=== PATIENT | female | born 1990 | race Caucasian/White ===

== ENCOUNTER → 2016-07-26 | Outpatient (CLI) | payer OTHER ==
[2016-07-26 14:54] LABS: URINE APPEARANCE CLEAR (CLEAR); URINE BILIRUBIN NEG (NEG); URINE COLOR YELLOW; URINE NITRITE NEG (NEG); URINE PH 8.5 (4.5-7.5); URINE SPECIFIC GRAVITY 1.011 (1.000-1.030); UROBILINOGEN NEG (NEG)
[2016-07-26 15:11] LABS: MANUAL MICROSCOPIC REQUIRED? NO; REVIEW REQ? NO
== END | disposition home or self-care (01) ==
LOC: C.LABSPEC 13:44
PROVIDERS: ATTEND Obstetrics & Gynecology
DX: O99.330 Smoking (tobacco) complicating pregnancy, unspecified trimester (principal)

== ENCOUNTER → 2016-08-17 | Outpatient (CLI) | payer OTHER ==
[2016-08-17 10:42] LABS: BASO % 0.3 %; BASO ABS # 0.03 K/uL (0-0.2); COMPLETE YES; EOS % 1.5 %; HEMATOCRIT 38.7 % (37-47); IG% 0.3 %; LYMPH % 20.4 %; LYMPH ABS # 1.94 K/uL (1.2-3.4); MEAN CELL VOLUME 90.2 fL (80-100); MEAN CORPUSCULAR HEMOGLOBIN 32.4 pg (25-34); MEAN CORPUSCULAR HGB CONC 35.9 g/dl (32-36); MEAN PLATELET VOLUME 9.2 fL (7.4-10.4); MONO % 7.4 %; NEUT % 70.1 %; PLATELET COUNT 243 K/uL (130-400); RED BLOOD COUNT 4.29 M/uL (4.2-5.4); WHITE BLOOD COUNT 9.49 K/uL (4.8-10.8)
== END | disposition home or self-care (01) ==
LOC: C.LAB1850 10:04
PROVIDERS: ATTEND Obstetrics & Gynecology
DX: Z34.03 Encounter for supervision of normal first pregnancy, third trimester (principal)

== ENCOUNTER → 2016-08-17 | Outpatient (CLI) | payer OTHER ==
[~2016-08-17] MED LIST: PRENTAB26 PO
== END | disposition home or self-care (01) ==
LOC: C.PAPS 15:23
PROVIDERS: ATTEND Obstetrics & Gynecology
DX: Z34.01 Encounter for supervision of normal first pregnancy, first trimester (principal)

== ENCOUNTER → 2016-08-17 | Outpatient (CLI) | payer OTHER ==
[2016-08-21 14:52] LABS: CHLAMYDIA TRACH RNA*** NOT DETECTED (NOT DETECTED); GC (NEIS GONORRHOEAE)RNA** NOT DETECTED (NOT DETECTED)
== END | disposition home or self-care (01) ==
LOC: C.LABSPEC 13:55
PROVIDERS: ATTEND Obstetrics & Gynecology
DX: Z34.03 Encounter for supervision of normal first pregnancy, third trimester (principal)

== ENCOUNTER → 2016-12-07 | Outpatient (CLI) | payer OTHER ==
[2016-12-07 16:21] LABS: URINE APPEARANCE TURBID (CLEAR); URINE BILIRUBIN NEG (NEG); URINE COLOR DK YELLOW; URINE EPITHELIAL CELL AUTO >30 /lpf (0-5); URINE NITRITE NEG (NEG); URINE SPECIFIC GRAVITY 1.026 (1.000-1.030); UROBILINOGEN NEG (NEG)
[2016-12-07 16:28] LABS: MANUAL MICROSCOPIC REQUIRED? NO; REVIEW REQ? YES
== END | disposition home or self-care (01) ==
LOC: C.LABSPEC 15:58
PROVIDERS: ATTEND Obstetrics & Gynecology
DX: Z34.02 Encounter for supervision of normal first pregnancy, second trimester (principal)

== ENCOUNTER → 2017-01-02 | Outpatient (CLI) | payer OTHER ==
[2017-01-02 16:27] LABS: HEMATOCRIT 39.1 % (37-47)
[2017-01-02 18:11] LABS: GTGD 50 Grams
== END | disposition home or self-care (01) ==
LOC: C.LAB1850 13:32
PROVIDERS: ATTEND Obstetrics & Gynecology
DX: Z34.02 Encounter for supervision of normal first pregnancy, second trimester (principal)

== ENCOUNTER → 2017-02-08 | Outpatient (CLI) | payer OTHER | END | disposition home or self-care (01) | LOC: C.LABSPEC 13:35 | PROVIDERS: ATTEND Obstetrics & Gynecology | DX: Z34.03 Encounter for supervision of normal first pregnancy, third trimester (principal); Z3A.00 Weeks of gestation of pregnancy not specified ==

== ENCOUNTER 2017-03-14 13:40 | Inpatient (IN) | payer OTHER ==
[~2017-03-14] VITALS: Ht 162.6 cm; Wt 65.0 kg
[2017-03-14] MEDS ORDERED: LACTATED RINGER'S 1000ML 1,000 ML IV PRN (14:09)
[2017-03-14 14:28] VITALS: Ht 162.6 cm; Wt 65.0 kg
[2017-03-14] MEDS: LACTATED RINGER'S 1000ML 1,000 ML IV SCH ×2 (14:40→16:06)
[2017-03-14 14:45] LABS: HEMATOCRIT 43.7 % (37-47); MEAN CELL VOLUME 94.8 fL (80-100); MEAN CORPUSCULAR HEMOGLOBIN 32.5 pg (25-34); MEAN CORPUSCULAR HGB CONC 34.3 g/dl (32-36); MEAN PLATELET VOLUME 10.2 fL (7.4-10.4); PLATELET COUNT 211 K/uL (130-400); RED BLOOD COUNT 4.61 M/uL (4.2-5.4); WHITE BLOOD COUNT 14.85 K/uL (4.8-10.8)
[2017-03-14] MEDS ORDERED: BUPIVACAINE 0.25% 30 ML VIAL ONE (14:57)
[2017-03-14] MEDS ORDERED: FENTANYL 2MCG/ML ROPIV 1.25MG/ML 100ML BAG EPI ONE (14:57)
[2017-03-14] MEDS ORDERED: EpHEDrine SULFATE INJ 50 MG/ML AMP ONE (14:57)
[2017-03-14] MEDS ORDERED: FENTANYL CITRATE INJ 50 MCG/1 ML 2 ML VIAL ONE (14:58)
[2017-03-14] MEDS ORDERED: LACTATED RINGER'S 1000ML 500 ML IV PRN (16:31)
[2017-03-14] MEDS ORDERED: NALOXONE HCL INJ 1 MG in SODIUM CHLORIDE 0.9% 1000ML 1,000 ML IV PRN (16:31)
[2017-03-14] MEDS ORDERED: PRENTAB26 PO (16:33)
[2017-03-14] MEDS ORDERED: NALBUPHINE HCL INJ 10 MG/ML AMP IV PRN (16:45)
[2017-03-14] MEDS ORDERED: PROMETHAZINE HCL INJ 6.25 MG in SODIUM CHLORIDE 0.9% 50ML 50 ML IV PRN (16:45)
[2017-03-14] MEDS ORDERED: EpHEDrine SULFATE INJ 50 MG/ML AMP IV PRN (16:45)
[2017-03-14] MEDS ORDERED: DiphenhydrAMINE HCL 50 MG/ML VIAL IV PRN (16:45)
[2017-03-14] MEDS ORDERED: NALOXONE HCL INJ 0.4 MG/1 ML VIAL/CARP IV PRN (16:45)
[2017-03-14] MEDS ORDERED: ONDANSETRON INJ 2 MG/ML 2 ML VIAL IV PRN (16:45)
[2017-03-14] MEDS: FENTANYL 2MCG/ML ROPIV 1.25MG/ML 100ML BAG EPI PRN ×2 (19:02→22:43)
[2017-03-14] MEDS ORDERED: CALCIUM CARBONATE 500 MG CHEWABLE PO PRN (20:30)
[2017-03-14] MEDS ORDERED: CALCIUM CARBONATE 500 MG CHEWABLE ONE (20:34)
[2017-03-14] MEDS ORDERED: OXYTOCIN 30 UNITS/500ML NSS IV ONE (22:24)
[2017-03-14] MEDS ORDERED: ACETAMINOPHEN 325 MG TAB PO PRN (23:30)
[2017-03-14] MEDS ORDERED: HYDROCORTISONE ACETATE 25 MG SUPP PR PRN (23:30)
[2017-03-14] MEDS ORDERED: LANOLIN OINT EXT PRN ×2 (23:30)
[2017-03-14] MEDS ORDERED: OXYCODONE/ACETAMINOPHEN 5-325 TAB PO PRN (23:30)
[2017-03-14] MEDS ORDERED: BENZOCAINE 20% AER SPR 82.5 GM CAN EXT PRN (23:30)
[2017-03-14] MEDS ORDERED: OXYTOCIN 30 UNITS/500ML NSS IV PRN (23:30)
[2017-03-14] MEDS ORDERED: DIPHTHERIA/TETANUS/PERTUSSIS 0.5 ML SYR/VIAL IM. ONE (23:30)
[2017-03-14] MEDS ORDERED: ACETAMINOPHEN/CODEINE 300/30MG TAB PO PRN ×2 (23:30)
[2017-03-14] MEDS ORDERED: SUPERCREAM 0.870 % 15GM JAR EXT PRN (23:30)
--- NOTE | 2017-03-14 23:42 | DELIVERY SUMMARY ---
DATE OF OPERATION: 03/14/2017 PREOPERATIVE DIAGNOSES: 1. Intrauterine at 41 weeks. 2. Active labor. POSTOPERATIVE DIAGNOSES: 1. Intrauterine at 41 weeks. 2. Active labor. PROCEDURE: 1. Epidural anesthesia. 2. Amniotomy. 3. Normal spontaneous vaginal delivery. 4. Left labial laceration and first-degree vaginal with repair. SURGEON: Felicita Grimes MD. ANESTHESIA: Epidural. ESTIMATED BLOOD LOSS: 400 mL. DESCRIPTION OF PROCEDURE: The patient presented to labor and delivery in early active labor at 4, 90, and -2. She underwent an epidural anesthesia and then amniotomy for clear fluid. She then progressed spontaneously to complete complete +2 station, pushed effectively, did deliver a viable female in JOLEEN presentation. There was no nuchal cord. The nares and mouth were bulb suctioned on the perineum. The rest of the was then delivered without difficulty. The nares and mouth were again bulb suctioned. The infant was placed on the maternal abdomen where the cord was clamped and cut at 1 minute. Cord blood was obtained. Placenta was delivered spontaneously intact with a 3-vessel cord. Cervix, sulci, rectum as well as the perineum was examined and found to be intact. A first-degree vaginal laceration and a left labial laceration were repaired. Hemostasis was obtained with dilute Pitocin and fundal massage. Estimated blood loss was 400 mL. Apgars 8 and 9. Mother and baby doing well at the end of the delivery. I attest to the content of the Intraoperative Record and any orders documented therein. Any exception s are noted below.
[2017-03-15] VITALS (7 sets, daily range): BP systolic 110–126; BP diastolic 64–77; PULSE 85–106; TEMP 36.3–36.6; O2SAT 97–99
[2017-03-15] MEDS: IBUPROFEN 600 MG TAB PO PRN ×3 (01:24→16:03)
--- NOTE | 2017-03-15 04:54 | Anesthesia Procedure Note ---
Anesthesia Epidural Removal Nt Date & Time Mar 15, 2017 at 04:54 Vital Signs Pain Intensity: 5.0 Vital Signs Past 12 Hours Date Time Temp Pulse Resp B/P (MAP) Pulse Ox O2 Delivery O2 Flow Rate FiO2 03/15/17 04:40 36.6 106 20 126/75 (92) 99 Room Air 03/15/17 01:10 Room Air 03/15/17 01:10 36.4 97 16 117/72 (87) 99 Room Air Notes Mental Status: alert / awake / arousable, participated in evaluation Nausea / Vomiting: adequately controlled Pain: adequately controlled Airway Patency, RR, SpO2: stable & adequate BP & HR: stable & adequate Hydration State: stable & adequate Neuraxial Anesthesia: was administered Anesthetic Complications: no major complications apparent, pt satisfied with anesthetic care Epidural: removed without complications, with tip intact
--- NOTE | 2017-03-15 06:46 | OB/GYN Progress Note ---
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 Subjective conversation w/ patient, physical exam, chart review, lab review Ambulation: ambulating normally Voiding: no voiding problems Passing Gas: Yes Diet Tolerance: Regular Diet Lochia: Small Feeding Type: Bottle Feeding Pain: 07/28 Review of Systems Constitutional: No fever, No chills Respiratory: No shortness of breath Cardiac: No chest pain Abdomen: No nausea, No vomiting Female : No dysuria Objective Vital Signs Date Time Temp Pulse Resp B/P (MAP) Pulse Ox O2 Delivery O2 Flow Rate FiO2 03/15/17 04:40 36.6 106 20 126/75 (92) 99 Room Air 03/15/17 01:10 Room Air 03/15/17 01:10 36.4 97 16 117/72 (87) 99 Room Air Physical Exam General Appearance: WELL-APPEARING Respiratory/Chest: lungs clear, normal breath sounds Cardiovascular: regular rate, rhythm Abdomen: normal bowel sounds, non tender, soft Fundus: Firm, Relation to Umbilicus (1 FB below) Extremities: non-tender, no pedal edema Laboratory Results Last 24 Hours Test 03/14/17 14:35 03/15/17 06:18 White Blood Count 14.85 K/uL Red Blood Count 4.61 M/uL Hemoglobin 15.0 g/dL Hematocrit 43.7 % Mean Corpuscular Volume 94.8 fL Mean Corpuscular Hemoglobin 32.5 pg Mean Corpuscular Hemoglobin Concent 34.3 g/dl RDW Standard Deviation 44.1 fL RDW Coefficient of Variation 12.9 % Platelet Count 211 K/uL Mean Platelet Volume 10.2 fL Assessment and Plan Post- Day Number: 1 Continue Routine Care: A/P: This is a 26 y/o female, , s/p [normal vaginal delivery] day 1. She is ambulating and clinically stable. Plan: - Vitals signs are reviewed and WNL (Tmax 36.6) - Last Hgb is 15 this AM is pending - Blood type O+, GBS neg, Rubella Immune - Routine care - Encourage ambulation, monitor and control pain with medication as needed, continue with regular diet as tolerated and monitor lochia - Stool softeners and sitz bath recommended - Encourage breast feeding and educate about breast feeding Resident Physician Supervision Note: I interviewed and examined the patient. Discussed with Dr. Dr. Goldman and agree with findings and plan as documented in the note. Any exceptions or clarifications are listed here: routine pnc. Documented By: Felicita Grimes Resident Involvement: Resident Care Provided Care Provided: OB Delivery
[2017-03-15 07:36] LABS: HEMATOCRIT 37.9 % (37-47)
[2017-03-15] MEDS: DOCUSATE SODIUM 100 MG CAP PO SCH ×2 (08:15→19:54)
[2017-03-15] MEDS: PRENATAL VITAMIN TAB PO SCH (08:15)
[2017-03-16] MEDS: IBUPROFEN 600 MG TAB PO PRN (00:19)
--- NOTE | 2017-03-16 06:07 | Discharge Instructions ---
Discharge Instructions Date of Service Mar 16, 2017. Admission Reason for Admission: R/O Labor Discharge Discharge Diagnosis / Problem: after vaginal delivery Discharge Goals Goal(s): Routine recovery after delivery Medications Continue Dispensed Medications: supercream, dermaplast, tucks, lansinoh Activity Recommendations Activity Limitations: per Instructions/Follow-up section . Instructions / Follow-Up Instructions / Follow-Up ACTIVITY RECOMMENDATIONS: * Gradual return to full activity over the next 2-3 weeks. * No lifting - nothing heavier than baby over the next 2-3 weeks. * Do not engage in vigorous exercise, sexual activity or sports until cleared by your physician. * Do not drive or operate any motorized equipment until cleared by your physician. * You may shower/bathe daily. MEDICATIONS: For discomfort or pain, you may use Acetaminophen (Tylenol), Ibuprofen (Advil), or Naproxen (Aleve) following the package directions. For constipation you may use Colace following the package directions. BREAST CARE: If you are not breast feeding: * Wear a supportive bra 24 hours a day for one to two weeks. * Avoid stimulating your breasts and nipples as much as possible during the first few weeks after delivery. * When taking a shower, have the warm water hit your back, not breasts. * When your breasts feel full, apply ice packs. Usually three to four times a day helps ease the discomfort. * Take a mild pain medication (Tylenol / Motrin) when you are uncomfortable. If breast feeding: * Use breast milk to lubricate nipples. Lansinoh cream may be used for sore nipples. You do not need to remove cream prior to breast feeding. If using a different brand of cream, check the label for directions regarding removal of cream prior to nursing. * Wear a supportive bra. * If having problems with breasts or breast feeding, call a medical economics consultant or your health care provider. EPISIOTOMY CARE: After delivery, if you have an episiotomy (stitches), the following steps will ease discomfort and aid healing. * For the first 24 hours after delivery, place ice packs next to your episiotomy to help reduce swelling. * After the first 24 hour-period, sitz baths, either portable or in the tub, are suggested. A shower with a shower arm sprayed over the episiotomy may be comforting. * Nirmala care should be done after each voiding and bowel movement. Squirt warm water from a plastic bottle over the perineum (region of the body between the anus and urinary opening) and pat dry. * Use Dermoplast to ease discomfort. Shake container. Hutchinson directly over the episiotomy. Place a Tucks on a clean sanitary pad next to your episiotomy. SPECIAL CARE INSTRUCTIONS: When you are discharged from the hospital, it is important for you to follow the instructions listed below: * During the first week at home, you should be able to care for yourself and your baby. In addition, the usual light household activities are encouraged. * Limit your activities to the way you feel. Do not try to clean the house or move furniture. Be sensible. * If you actively engage in sports and have done so up until the time of your delivery, you may resume these activities as soon as you feel able. This may take up to one month or even longer. Use good judgment. * Continue to take your vitamins for at least six weeks after the of your baby. * Your diet need not be limited unless you were on a special diet before your delivery. Breast-feeding mothers need around 2500 calories per day and at least 64-80 ounces of fluid per day (8 to 10 glasses). * You should eat foods from the four major food groups. Crash diets or fad diets are to be avoided. Eating lean meats, fresh fruits and vegetables, low-fat dairy products, high fiber foods and a regular exercise program, will help you get back to your pre- weight without putting your health at risk. * Constipation is sometimes a problem after delivery. Take a mild laxative as needed. If breast feeding, Milk of Magnesia is acceptable to use. You may use a suppository or Fleets enema if no episiotomy. * A daily shower or tub bath is suggested. Be sure to thoroughly and gently dry the perineum. * A bloody vaginal discharge will usually continue until around four weeks post . A small amount of bleeding may continue for as long as six weeks. Vaginal discharge changes from the bright red bleeding after delivery to pink then brownish and finally yellowish-pink before becoming white and disappearing. * Bleeding may increase with activity. Your first period may come in 4-8 weeks. If you are breast feeding, your period may be delayed even longer. * Prentice (sex) can begin whenever both you and your partner feel comfortable and do not have any form of genital infection. It is recommended that you wait at least six weeks for internal and external healing to occur. If you have questions, please talk to your health care practitioner. A condom should be used to prevent infection and . * Foreplay, gentle intercourse and lubrication is very important the first several times to prevent pain. A water-based lubricant such as K-Y jelly or Astroglide may be used. * If you have RH negative blood and your baby is RH positive, you will receive RHOGAM by injection prior to discharge. The nurse will give you a card to keep with you that has the date and place that you received RHOGAM after delivery. * During your care, you had a Rubella screen done to check for the presence of rubella antibodies in your blood. If your test was negative, you will receive a Rubella vaccine prior to discharge. This vaccine may cause a fever, soreness at the injection site and flu-like symptoms. If these symptoms persist, notify your health care practitioner. is not advised for one month after a Rubella vaccine. * Verbalizes understanding of car seat law as reviewed with patient nursing. * Car Seat hand-out given and reviewed with patient by nursing. * Shaken baby information reviewed with patient by nursing. Call you doctor if: * Heavy bleeding (saturating several pads an hour) or passing clots the size of your fist. * A fever >101 degrees F (38.3 degrees C) on two occasions four hours apart and /or chills. * Unusual pain in the pelvic or vaginal areas. * "Baby Blues" lasting longer than two weeks. If you have any questions or concerns, call your health care practitioner at . FOLLOW UP VISIT: * Please call the office at to schedule a 6 week examination. It is important you keep this appointment. It is important for you to make arrangements for either yearly or twice yearly check-ups thereafter. Current Hospital Diet Patient's current hospital diet: Regular OB Diet Discharge Diet Recommended Diet: Regular Diet Pending Studies Studies pending at discharge: no Medical Emergencies . Who to Call and When: Medical Emergencies: If at any time you feel your situation is an emergency, please call [phone] immediately. . Non-Emergent Contact Non-Emergency issues call your: Appraisal Analyst . . "Provider Documentation" section prepared by Frantz Goldman. . VTE Core Measure Inpt VTE Proph given/why not?: SCD's
--- NOTE | 2017-03-16 06:56 | OB/GYN Progress Note ---
CHIEF HUMAN RESOURCES OFFICER Progress Note Date of Service Mar 16, 2017. Subjective conversation w/ patient, physical exam, chart review, lab review Ambulation: ambulating normally Voiding: no voiding problems Passing Gas: Yes Diet Tolerance: Regular Diet Lochia: Small Feeding Type: Bottle Feeding Pain: mild pain Notes: Also had a BM Review of Systems Constitutional: No fever, No chills Respiratory: No shortness of breath Cardiac: No chest pain Abdomen: No nausea, No vomiting Female : No dysuria Objective Vital Signs Date Time Temp Pulse Resp B/P (MAP) Pulse Ox O2 Delivery O2 Flow Rate FiO2 03/15/17 23:05 36.6 87 18 114/64 (81) Room Air 03/15/17 23:05 Room Air 03/15/17 19:30 36.5 85 18 110/73 (85) Room Air 03/15/17 15:40 36.3 85 18 112/75 (87) 98 Room Air 03/15/17 15:40 98 Room Air 03/15/17 12:00 36.5 101 18 112/77 (89) 98 Room Air 03/15/17 08:30 36.4 106 18 111/72 (85) 97 Room Air 03/15/17 08:30 97 Room Air Physical Exam General Appearance: WELL-APPEARING Respiratory/Chest: lungs clear, normal breath sounds Cardiovascular: regular rate, rhythm Abdomen: normal bowel sounds, non tender, soft Fundus: Firm, Relation to Umbilicus (2 FB below) Extremities: non-tender, no pedal edema Assessment and Plan Post- Day Number: 2 Continue Routine Care: A/P: This is a 26 y/o female, , s/p [normal vaginal delivery] day 2. She is ambulating and clinically stable. Plan: - Vitals signs are reviewed and WNL (Tmax 36.6) - Last Hgb is 13.2 - Blood type O+, GBS neg, Rubella Immune - No signs of depression. - Routine care - Discussed resting, feeding, pain control, mastitis, control, follow up in 6 weeks and reasons to call sooner, if necessary. - Continue with pain medication as needed, and continue vitamins. - Encourage breast feeding and educate about breast feeding - Patient understands and keen for home. - Plan to discharge home Resident Physician Supervision Note: I was present with Dr. Goldman during the history and exam. I discussed the case with the resident and agree with the findings and plan as documented in the note. Any exceptions or clarifications are listed here: [None] Documented By: Bruce Mason Resident Involvement: Resident Care Provided Care Provided: OB Delivery
[2017-03-16 08:00] VITALS: BP 112/73; PULSE 92; TEMP 36.5
[2017-03-16] MEDS: DOCUSATE SODIUM 100 MG CAP PO SCH (08:02)
[2017-03-16] MEDS: PRENATAL VITAMIN TAB PO SCH (08:02)
[2017-03-16 11:14] VITALS: BP_DIAS 73; PULSE 92; TEMP 36.5
== END 2017-03-16 12:14 | disposition home or self-care (01) | DRG 775 ==
LOC: C.LD 13:40 → C.OPB 13:40 → C.LD 14:11 → C.OPB 14:11 → C.OBG 03-15 01:01
PROVIDERS: ADMIT Obstetrics & Gynecology; ATTEND Obstetrics & Gynecology
PROC: 10E0XZZ Delivery of Products of Conception, External Approach (ICD-10-PCS; principal; 2017-03-14)
PROC: 0HQ9XZZ Repair Perineum Skin, External Approach (ICD-10-PCS; principal; 2017-03-14)
DX: O48.0 Post-term pregnancy (principal); Z37.0 Single live birth; Z3A.41 41 weeks gestation of pregnancy

== ENCOUNTER 2024-09-18 08:55 | Inpatient (IN) ==
--- OUTSIDE RECORDS SUMMARY | 2024-09-18 10:10 | External Medical Summary | Summary of Care ---
Author Name Unknown Organization [facility] Address [address] [facility] [place] [address] Phone [phone] Care Team Providers Care Hypoid Gear Generator Name Role Phone Carri Goyal DO Primary Care Provider [phone]- [phone] Reason for Visit * Reason Onset Date Comments Outpatient Testing 09/16/2024 Advice 09/16/2024 Encounter Details Date Type Department Care Team (Late st Contact Info) Description 09/16/2024 Telephone Gynecology/Obstetrics [facility] [address] [place] [address] [place] Strauss PA-C [address] [place] [address] Outpatient Testing; Advice Allergies Active Allergy Reactions Criticality Noted Date Comments Amoxicillin Renal complications 06/18/2024 documented as of this encounter (statuses as of 09/16/2024) Medications Triamcinolone Acetonide 0.1 % External Ointment (Aristocort)Shantel cations:Rash and nonspecific skin eruption Apply 2x daily (or more if itchy instead of scratching) to rash over face/trunk/arms /legs 454 g 1 Active Additional Information Patient not taking.Reported on 07/17/2024 Mupirocin 2 % External Ointment (Bactroban)Indic ations:Pitted keratolysis Apply to feet 2-3 times daily 22 g 1 1 Active Additional Information Patient not taking.Reported on 07/17/2024 predniSONE 10 MG Oral Tablet (Deltasone)Indic ations:Rash and nonspecific skin eruption Take 6 tabs daily for 3 days; then 5 tabs daily for 3 days; then 4 tabs daily for 3 days; then 3 tabs daily for 3 days; then 2 tabs daily for 3 days; and then 1 tab daily for 3 days 63 Tablet 1 Active Additional Information Patient not taking.Reported on 07/17/2024 Forte Oral Tablet Take by mouth. Act deidra OneTouch Verio Flex System w/Device KitIndications:D iet controlled gestational diabetes mellitus (GDM) in third trimester Use to test blood sugars 4 times daily (fasting, 1 hour after breakfast, lunch, and dinner) 1 Kit 5 Active Additional Information Patient not taking.Reported on 09/02/2024 OneTouch Verio In Vitro Strip (Glucose Blood)Indication s:Diet controlled gestational diabetes mellitus (GDM) in third trimester Use to test blood sugars 4 times daily (fasting, 1 hour after breakfast, lunch, and dinner) 125 Strip 6 5 Active Additional Information Patient not taking.Reported on 09/02/2024 OneTouch Delica Lancets 30GIndications:D iet controlled gestational diabetes mellitus (GDM) in third trimester Use to test blood sugars 4 times daily (fasting, 1 hour after breakfast, lunch, and dinner) 200 Each 6 5 Active Additional Information Patient not taking.Reported on 09/02/2024 OneTouch Verio In Vitro Strip (Glucose Blood)Indication s:Diet controlled gestational diabetes mellitus (GDM) in third trimester Monitor blood sugar four times daily (once fasting & 1 hour after breakfast, lunch, and dinner). 150 Strip 6 5 Active OneTouch Verio w/Device KitIndications:D iet controlled gestational diabetes mellitus (GDM) in third trimester Please monitor blood sugar four times daily (once fasting & 1 hour after breakfast, lunch, and dinner). 1 Kit 5 Active OneTouch Delica Lancets 33GIndications:D iet controlled gestational diabetes mellitus (GDM) in third trimester Monitor blood sugar four times daily (once fasting & 1 hour after breakfast, lunch, and dinner). 200 Each 6 5 Active Cephalexin 500 MG Oral Capsule (Keflex) Take 1 Capsule by mouth in the morning and 1 Capsule at noon and 1 Capsule before bedtime. 5 Active Nystatin 782593 UNIT/ML Mouth/Throat Suspension Take 5 mL by mouth in the morning and 5 mL at noon and 5 mL in the evening and 5 mL before bedtime. 60 mL 5 Active Insulin Glargine Solostar 100 UNIT/ML Subcutaneous Solution Pen-injector (Lantus SoloStar)Indicat ions:Insulin controlled gestational diabetes mellitus (GDM) in third trimester Inject under skin 10 units at breakfast and 10 units at bedtime. Give doses 12 hours apart. 15 mL 5 Active BD Pen Needle Mini U/F 31G X 5 MM (Insulin Pen Needle)Indicatio ns:Insulin controlled gestational diabetes mellitus (GDM) in third trimester Use to inject insulin twice daily. 100 Each 5 Active documented as of this encounter (statuses as of 09/16/2024) Active Problems Problem Noted Date Diagnosed Date Tobacco smoking complicating Overview (08/26/2024): Currently smoking 5-10 cigarettes/day which is a decrease from 1 pack per day prior to the . Encouraged smoking cessation. Assessment & Plan (08/26/2024 8:56 AM EDT): Strongly advised patient to stop using tobacco. Discussed that tobacco use is associated with increased risks of spontaneous miscarriage, labor and delivery, premature rupture of membranes, growth restriction, stillbirth, SIDS postnatally, and placental abnormalities such as previa or abruption. Smoking cessation aids such as the nicotine patch or Zyban are considered safer alternatives to tobacco use during . Encouraged patient to discuss with her primary provider for prescribing. For patients who report smoking 1 pack per day of cigarettes or greater during , we recommend Maternal Medicine ultrasound for growth at 28-30 weeks. Advised patient that the most successful method to quit smoking is if those around you do not smoke as well. GDM (gestational diabetes mellitus) 08/20/2024 Overview (09/16/2024): Diagnosed at 35 weeks Nutrition referral ordered; scheduled on 09/03/24 OneTouch Verio meter ordered Lab Results Component Value Date/Time 50-G GESTATIONAL GLUCOSE, 1 HOUR - [facility] 147 (H) 08/05/2024 12:00 PM 100-G GESTATIONAL GLUCOSE, 1 HOUR - [facility] 201 (H) 08/19/2024 12:00 PM 100-G GESTATIONAL GLUCOSE, 2 HOUR - [facility] 152 08/19/2024 01:01 PM 100-G GESTATIONAL GLUCOSE, 3 HOUR - [facility] 145 (H) 08/19/2024 02:00 PM 100-G GESTATIONAL GLUCOSE, FASTING - [facility] 88 08/19/2024 10:58 AM 08/26/24: MFM ADAPT consult complete. Referred to [facility]. Instructions provided to report blood sugars each week for MFM review 09/02/20240544-[id number]-[id number] via zeyad and messaging. Overall stable (< 50% elevated). Some missed values. Sent message to test four times daily and report. 09/09/20242703-DSY-bviapvwc fasting blood sugars and post prandial values. Sent message to patient and [facility] PARs to schedule follow up ADAPT within the next week. 09/12/24: Follow-up ADAPT visit complete; elevated fasting and postprandial values; patient agreeable to insulin - ordered Lantus 10 units at breakfast and 10 units at bedtime 09/16/20248714-[id number]-raonvqhum via zeyad and messaging. Overall stable (< 50% elevated) Assessment & Plan (09/12/2024 3:56 PM EDT): Orders: Insulin Glargine Solostar 100 UNIT/ML Subcutaneous Solution Pen-injector (Lantus SoloStar); Inject under skin 10 units at breakfast and 10 units at bedtime. Give doses 12 hours apart. BD Pen Needle Mini U/F 31G X 5 MM (Insulin Pen Needle); Use to inject insulin twice daily. Assessment & Plan (08/29/2024 2:08 PM EDT): 1'GTT and 3'GTT results reviewed. Working with ADAPT. Ev reports thus far her sugars have been well controlled with diet alone. Assessment & Plan (08/26/2024 8:56 AM EDT): CONSIDERATIONS: Reviewed etiology and risks associated with gestational diabetes mellitus (GDM), including risks to , fetus, and maternal progression to Type 2 DM. Instructed on proper use of glucometer; supplies ordered, if indicated. Advised that life-long screening for diabetes is recommended every 1-3 years. RECOMMENDATIONS: Recommend monitoring blood sugars with daily fasting blood sugar (maintained at less than 95) and 1 hour postprandial measurements (maintained at less than 140). Medications should be adjusted to maintain these target values. Report levels to MFM (Maternal- Medicine) weekly. Recommend nutrition consult with RDN (Registered Dietitian Cogeneration Technician). Lifestyle changes are also indicated including optimizing gestational weight gain and physical activity of 30 minutes per day, if not otherwise contraindicated in . Insulin is preferred if medications are indicated to optimize euglycemia. Metformin (preferred over glyburide) may also be used in some circumstances. Reviewed the risks and benefits of each. Recommend ultrasound, surveillance and delivery as follows: A1GDM, delivery should be accomplished by 41w0d. A2GDM, recommend growth assessment with MFM every 4 weeks, initiate surveillance with twice weekly NSTs at 32 weeks and continue until delivery at 39 weeks. Recommend intrapartum monitoring every 1-2 hours (A2GDM) or every 4 hours (A1GDM) and treat with insulin if indicated. Recommend 2-hour glucose tolerance testing with 75-gram glucose load during admission (or 6-8 weeks if not completed). Abnormal glucose tolerance in mother complicatin g 08/06/2024 Overview (08/06/2024): Failed glucola at 33w. 3 hour ordered Late care 06/23/2024 Overview (06/23/2024): New completed at 26w5d, dating based off of u/s at that time. Assessment & Plan (08/26/2024 8:42 AM EDT): Encourage consistent care to promote maternal and well-being. Encounter for supervision of other normal , second trimester 06/23/2024 Esophageal reflux 06/21/2010 Allergic rhinitis 06/21/2010 Estimated Date of Delivery Comme nts Yes 09/24/2024 Based on Ultraso und documented as of this encounter (statuses as of 09/16/2024) Resolved Problems Problem Noted Date Diagnosed Date Resolved Date Routine child health exam 01/06/2003 PROPHY. VACCINATION AGAINST TETANUS-DIPHTHERIA (TD) 01/06/2003 08/04/2009 Other acne 01/06/2003 08/04/2009 documented as of this encounter (statuses as of 09/16/2024) Immunizations Name Administration Dates Next Due DTP Vaccine 04/04/1996, 6,08/04/1992,11/25,1991 HPV Vaccine, 4-Valent 01/21/2009,02/07/2008,12/20 Haemophilius B (HIB), unspecified 08/04/1992,12/1991,1991 Hepatitis B Vaccine 02/09/1998,01/12/1997,1991 MMR - Measles/Mumps/Rubella Vaccine 04/04/1996,0 08/04/1992 Meningococcal Conjugate Vacc ine (Menactra/Menveo) 01/07/2007 OPV - Polio Virus Vaccine (Oral) 996,08/04/1992,1991,06/24 Seasonal Influenza Vac., MDV , IM, 0.5 mL (Fluzone) 07/25/2010 TD - Tetanus/Diptheria (ADULT) 01/06/2003 TDAP, Age 7 and older, IM (Adacel) 07/17/2024, documented as of this encounter Social History Tobacco Use Types Packs/Day Years Used Date Smoking Tobacco: Every Day Cigarettes 0.5 1 Smokeless Tobacco: Never Alcohol Use Standard Drinks/Week Comments No 0 (1 standard drink = 0.6 oz pur e alcohol) denies in Hunger Vital Sign Answer Date Recorded Within the past 12 months, y ou worried that your food would run out before you got the money to buy more. Never true 09/02/19 25 Within the past 12 months, t he food you bought just didn't last and you didn't have money to get more. Never true 09/01/2024 Childcare Answer Date Recorded Do you feel overwhelmed with taking care of a child, family member or friend? No 09/01/2024 Does your family need help f inding childcare? (Household - for ages 0-17 years) Not on file 09/01/2024 Clothing Answer Date Recorded Have you been unable to get clothing when it was really needed? No 09/01/2024 Is your family able to get c lothes or diapers when needed? (Household - for ages 0-17 years) Not on file 09/01/2024 Personal Safety Answer Date Recorded Do you feel unsafe or have concerns for your saf ety? No 09/01/2024 Do you have concerns for you r family's safety? (Household - for ages 0-17 years) Not on file 09/01/2024 Utilities Answer Date Recorded Do you have trouble paying y our heating, water, or electric bill? No 09/01/2024 Is your family able to pay t he heat, water, or electric bill? (Household - for ages 0-17 years) Not on file 09/01/2024 Does your family have access to good internet? (Household - for ages 0-17 years) Not on file 09/01/2024 Employment Status Answer Date Recorded Are you unemployed or without regular income? Ye s 09/01/2024 Does the household have a re gular source of income? (Household - for ages 0-17 years) Not on file 09/01/2024 Social Connections Answer Date Recorded How often do you feel lonely or isolated from those around you? Sometimes 09/01/2024 Financial Resource Strain Answer Date R ecorded Do you have any trouble payi ng for your medications, or do you think you might in the future? No 09/01/2024 Does your family have troubl e paying for medicine? (Household - for ages 0-17 years) Not on file 09/01/2024 Transportation Needs Answer Date Record ed Do you have trouble getting a ride to medical visits or work? (Adult - for ages 18 years and over) Not on file 09/01/2024 Does your family have a hard time getting a ride to doctors visits? (Household - for ages 0-17 years) Not on file 09/01/2024 Has lack of transportation k ept you from medical appointments, meetings, work, or from getting things needed for daily living? Check all that apply. No 09/01/2024 Do you (or your family) have trouble finding or paying for a ride (transportation)? (Household - for ages 0-17 years) Not on file 09/01/2024 Housing Stability Answer Date Recorded Do you currently live in a s helter or have no steady place to sleep at night? No 09/01/2024 Do you think you are at risk of becoming homeless? (Adult - for ages 18 years and over) Not on file 09/01/2024 Does your family worry about paying for your home or becoming homeless? (Household - for ages 0-17 years) Not on file 0 09/01/2024 Are you homeless or worried that you might be in the future? No 09/01/2024 Are you (or your family) nichol eless or worried that you might be in the future? (Household - for ages 0-17 years) Not on file Food Insecurity Answer Date Recorded Within the past 12 months, y ou worried that your food would run out before you got the money to buy more. Never true 09/02/19 25 Within the past 12 months, t he food you bought just didn't last and you didn't have money to get more. Never true 09/01/2024 Do you need food for this week? No 09/01/2024 Estimated Date of Delivery Comme nts Yes 09/24/2024 Based on Ultraso und Sex and Gender Information Value Date Recorded Sex Assigned at Female 06/23/2024 3:19 PM EST Legal Sex Female 6:01 AM EST Gender Identity Female 06/23/2024 3:19 PM EST Sexual Orientation Straight 06/23/2024 3: 19 PM EST documented as of this encounter Miscellaneous Notes * Telephone Encounter - Hiral Rodriguez LPN - 09/16/2024 2:13 PM EDT Spoke with pt she is complaining of her BP being 157/97 with her cuff and having LE swelling. [place] documented that she was having swelling in her visit and BP was good at 114/68. Per [place] pt can come in and bring her Cuff with her so we can make sure her BP cuff is the same as what we are getting. Pt said she will be in within the hour to have bp checked again. Pt said she feels tired thinks s he has a SANDERS from sinus issues. * Telephone Encounter - Ashley Cross OSA - 09/16/2024 1:58 PM EDT Spoke to tp and pt states is concerns with her blood pressure is fluctuating up and down , Swollen hands & legs . Pt unsure what to do next . Please assist, Thank you * Telephone Encounter - Jordyn Berry OSA - 09/16/2024 12:27 PM EDT Pt called in to check status of test results. Made pt aware they are still pending. Pt states she does not feel good. Pt is requesting if nurse could call pt back. Please advise. * Telephone Encounter - Tesha Collins OSA - 09/16/2024 10:17 AM EDT Patient has been notified of the message. Patient has further questions about results. Transferred to nurse Bates in office. * Telephone Encounter - Cristina Luna LPN - 09/16/2024 10:10 AM EDT left message for patient to call office At todays visit, patient was ordered PCR, urine dip and possible urine culture. Only enough urine for urinalysis, which shows protein and leuks. Order for remainder of labs in place at the lab if patient can stop in to complete jasmyne. documented in this encounter Plan of Treatment Health Maintenance Due Date Last Done Comments Depression Screening 2003 Pneumococcal Vaccine: Pediatrics (0 to 5 Years) and At-Risk Patients (6 to 18 Years and 19+ Years) (1 of 2 - PCV) 2010 Lipid Panel 2011 COVID-19 Vaccine (1 - season) 2024 Influenza Vaccine (FLU shot) (Season Ended) 2025 02/08/2017, 07/25/2010, 07/25/2010 Pap Smear 06/23/2027 06/23/2024 Cervical Cancer Screening 06/23/2029 HPV/Co-Test 06/23/2029 06/23/2024 DTap/Tdap Vaccines (10 - Td or Tdap) 07/17/2034 07/17/2024, 01/11/2017, 12/28/2016, Additional history exists Hepatitis B Vaccine Completed 02/09/1998, 02/09/1998, 01/12/1997, Additional history exists MENINGOCOCCAL (MENACTRA/MENVEO) Aged Out 01/07/2007, 01/07/2007 No longer eligibl e based on patient's age to complete this topic HPV (Gardasil) Vaccine Completed 9, 02/07/2008, 01/07/2007 Meningitis B Vaccine (Bexsero/Trumemba) Aged Out No longer eligible based on patient's age to complete this topic documented as of this encounter Medical Devices Not on filedocumented as of this encounter Care Teams Hypoid Gear Generator Relationship Specialty Start Date End Date Carri Goyal DO [address] [facility] [address] [place] [address] PCP - General Family Medicine 01/05/21 documented as of this encounter
--- OUTSIDE RECORDS SUMMARY | 2024-09-18 10:10 | External Medical Summary | Summary of Care ---
Author Name Unknown Organization [facility] Address [address] [facility] [place] [address] Phone [phone] Care Team Providers Care Flight Test Engineer Name Role Phone Carri Goyal DO Primary Care Provider +1- [phone] Reason for Visit * Reason Onset Date Comments Outpatient Testing 09/16/2024 Advice 09/16/2024 Encounter Details Date Type Department Care Team (Late st Contact Info) Description 09/16/2024 Telephone Gynecology/Obstetrics [facility] [address] [place] [address] [place] Strauss PA-C [address] [place] [address] Outpatient Testing; Advice Allergies Active Allergy Reactions [...] 1 Capsule before bedtime. 5 Active Nystatin 469104 UNIT/ML Mouth/Throat Suspension Take 5 mL by [...] blood sugars each week for MFM review 09/02/20240869-PUS-pxkarbahr via zeyad and messaging. Overall stable (< 50% elevated). Some missed values. Sent message to test four times daily and report. 09/09/20242894-[id number]-[id number] fasting blood sugars and post prandial values. Sent message to patient and [facility] PARs to schedule follow up ADAPT within the next week. 09/12/24: Follow-up ADAPT visit complete; elevated fasting and postprandial values; patient agreeable to insulin - ordered Lantus 10 units at breakfast and 10 units at bedtime 09/16/[id number] via zeyad and messaging. Overall stable (< [...] Recommend nutrition consult with RDN (Registered Dietitian Manager International). Lifestyle changes are also indicated including optimizing [...] filedocumented as of this encounter Care Teams Flight Test Engineer Relationship Specialty Start Date End Date Carri Goyal DO [address] [facility] [address] [place] [address] PCP - General Family Medicine 01/05/21 documented as of this encounter
--- OUTSIDE RECORDS SUMMARY | 2024-09-18 10:10 | External Medical Summary | Summary of Care ---
Author Name Unknown Organization [facility] Address [address] [facility] [place] [address] Phone [phone] Care Team Providers Care Recreational Director Name Role Phone Carri Goyal DO Primary Care Provider +1- [phone] Reason for Visit * Reason Onset Date Comments Outpatient Testing 09/16/2024 Advice 09/16/2024 Encounter Details Date Type Department Care Team (Late st Contact Info) Description 09/16/2024 Telephone Gynecology/Obstetrics [facility] [address] [place] [address] [place] Strauss PA-C [address] [place] [address] Outpatient Testing; Advice Allergies Active Allergy Reactions [...] 1 Capsule before bedtime. 5 Active Nystatin 762146 UNIT/ML Mouth/Throat Suspension Take 5 mL by [...] blood sugars each week for MFM review 09/02/20240151-YAE-evbgahsus via zeyad and messaging. Overall stable (< 50% elevated). Some missed values. Sent message to test four times daily and report. 09/09/20241354-MPX-lqloldnj fasting blood sugars and post prandial values. Sent message to patient and [facility] PARs to schedule follow up ADAPT within the next week. 09/12/24: Follow-up ADAPT visit complete; elevated fasting and postprandial values; patient agreeable to insulin - ordered Lantus 10 units at breakfast and 10 units at bedtime 09/16/[id number]-ibwctqcja via zeyad and messaging. Overall stable (< [...] Recommend nutrition consult with RDN (Registered Dietitian Patrol Man). Lifestyle changes are also indicated including optimizing [...] filedocumented as of this encounter Care Teams Recreational Director Relationship Specialty Start Date End Date Carri Goyal DO [address] [facility] [address] [place] [address] PCP - General Family Medicine 01/05/21 documented as of this encounter
--- OUTSIDE RECORDS SUMMARY | 2024-09-18 10:11 | External Medical Summary | Summary of Care ---
Author Name Unknown Organization [facility] Address [address] [facility] [place] [address] Phone [phone] Care Team Providers Care Lot Attendant Name Role Phone Carri Goyal DO Primary Care Provider +1- [phone] Encounter Details Date Type Department Care Team (Late st Contact Info) Description 09/12/2024 Telephone Gynecology/Obstetrics [facility] [address] [place] [address] Lucille Carroll PA-C [address] [place] [address] Allergies Active Allergy Reactions Criticality Noted Date Comments Amoxicillin Renal complications 06/18/2024 documented as of this encounter (statuses as of 09/12/2024) Medications Triamcinolone Acetonide 0.1 % External Ointment [...] after breakfast, lunch, and dinner) 200 Each 5 Active Additional Information Patient not taking.Reported [...] after breakfast, lunch, and dinner). 200 Each 5 Active Cephalexin 500 MG Oral Capsule (Keflex) Take 1 Capsule by mouth in the morning and 1 Capsule at noon and 1 Capsule before bedtime. 5 Active Nystatin 148537 UNIT/ML Mouth/Throat Suspension Take 5 mL by [...] as of this encounter (statuses as of 09/12/2024) Active Problems Problem Noted Date Diagnosed Date [...] well. GDM (gestational diabetes mellitus) 08/20/2024 Overview (09/12/2024): Diagnosed at 35 weeks Nutrition referral ordered; [...] blood sugars each week for MFM review 09/02/20244473-DUW-uzcfcmczo via zeyad and messaging. Overall stable (< 50% elevated). Some missed values. Sent message to test four times daily and report. 09/09/20247076-PST-eonrusjc fasting blood sugars and post prandial values. Sent message to patient and [facility] to schedule follow up ADAPT within the next week. 09/12/24: Follow-up ADAPT visit complete; elevated fasting and postprandial values; patient agreeable to insulin - ordered Lantus 10 units at breakfast and 10 units at bedtime Assessment & Plan (09/12/2024 3:56 PM EDT): [...] Recommend nutrition consult with RDN (Registered Dietitian Actuary Clerk). Lifestyle changes are also indicated including optimizing [...] as of this encounter (statuses as of 09/12/2024) Resolved Problems Problem Noted Date Diagnosed Date Resolved Date Routine child health exam 01/06/2003 PROPHY. VACCINATION AGAINST TETANUS-DIPHTHERIA (TD) 01/06/2003 08/04/2009 Other acne 01/06/2003 08/04/2009 documented as of this encounter (statuses as of 09/12/2024) Immunizations Name Administration Dates Next Due HPV Vaccine, 4-Valent 01/21/2009,02/07/2008,12/20 Meningococcal Conjugate Vacc ine (Menactra/Menveo) 01/07/2007 Seasonal Influenza Vac., MDV , IM, 0.5 mL (Fluzone) 07/25/2010 TDAP, Age 7 and older, IM (Adacel) [...] money to buy more. Never true 09/02/19 Within the past 12 months, t he [...] encounter Miscellaneous Notes * Telephone Encounter - Cristina Luna LPN - 09/12/2024 4:08 PM EDT Scheduled for nst/freida 09/16/24 with Rachel. IOL scheduled 09/18/24. Patient aware and agreeable. Given phone number for l+d and instructed to call them on 09/18 at 6am for arrival time. * Telephone Encounter - Lucille Carroll PA-C - 09/12/2024 4:02 PM EDT Patient started on insulin for GDMA2 starting today. Needs scheduled back for twice weekly NST starting now. Delivery at 39th week recommended. Nursing working on getting this scheduled. documented in this encounter Plan of Treatment Upcoming Encounters Date Type Department Care Team (Late st Contact Info) Description 09/16/2024 9:00 AM EDT [facility] [address] [place] [address] Rachel Strauss PA-C [address] [place] [address] Greg, Non Stress Tests Aleksey [address] [place] [address] 09/18/2024 2:00 PM EDT Office Visit Gynecology/Obstetrics Haydee Garza [address] [place] [address] Lucille Carroll PA-C [address] [place] [address] Health Maintenance Due Date Last Done Comments Depression Screening 2003 Pneumococcal Vaccine: Pediatrics (0 to 5 Years) and At-Risk Patients (6 to 18 Years and 19+ Years) (1 of 2 - PCV) 2010 Lipid Panel 2011 COVID-19 Vaccine ( - season) 2024 Influenza Vaccine (FLU shot) [...] filedocumented as of this encounter Care Teams Lot Attendant Relationship Specialty Start Date End Date Carri Goyal DO [address] [address] PCP - General Family Medicine 01/05/21 documented as of this encounter
--- OUTSIDE RECORDS SUMMARY | 2024-09-18 10:11 | External Medical Summary ---
Author Name Unknown Address Unknown Organization K01:[facility] - [address] [place] [address] Laboratory Report Ordering Provider Test Date Status HUY RICE 09/16/2024 10:53:58 Final Observation Date Value Abnormality Reference (Units) Status Bacteria identified in Specimen by Culture 09/16/2024 10:53:58 No significant growth Final Test: Culture, Urine, Quanti tative
Specimen Source: Urine, Clean Catch
Specimen Type: Urine
Specimen Date: 09/16/2024 1053
Result Date: 09/17/2024 1100
Result Status: Final result
Resulting Lab: [facility]
[address]
[place] [address]

CULTURE

No significant growth

null Performing Location [facility] - [address] [facility] [address]
--- OUTSIDE RECORDS SUMMARY | 2024-09-18 10:11 | External Medical Summary ---
Author Name Unknown Address Unknown Organization K01:[facility] [place] [address] [place] [address] Laboratory Report Ordering Provider Test Date Status HUY RICE 09/16/2024 10:53:58 Final Normal: � � � <150 mg/ g creatinine
High: � � � � � 150-500 mg/g creatinine
Very High: � >500 mg/g creatinine
Nephrotic: � >3000 mg/g creatinine Observation Date Value Abnormality Reference (Units ) Status Protein/Creatinine [Ratio] in Urine 09/16/2024 10:53:58 148 <150 (mg/g ) Final Protein, Urine 09/16/2024 10:53:58 12 (mg/dL) Final Creatinine, Urine 09/16/2024 10:53:58 81 (mg/dL) Final Performing Location [facility] [place] [address] [place] [address]
--- OUTSIDE RECORDS SUMMARY | 2024-09-18 10:11 | External Medical Summary | Summary of Care ---
Author Name Unknown Organization [facility] Address [address] [facility] [place] [address] Phone [phone] Care Team Providers Care Sex Worker Or Escort Name Role Phone Carri Goyal DO Primary Care Provider +1- [phone] Reason for Visit * Reason Onset Date Comments Outpatient Testing 09/16/2024 Encounter Details Date Type Department Care Team (Late st Contact Info) Description 09/16/2024 Telephone Gynecology/Obstetrics [facility] [address] [place] [address] Rachel Strauss PA-C [address] [place] [address] Outpatient Testing Allergies Active Allergy Reactions Criticality Noted Date [...] feet 2-3 times daily 22 g 1 Active Additional Information Patient not [...] 1 Capsule before bedtime. 5 Active Nystatin 276139 UNIT/ML Mouth/Throat Suspension Take 5 mL by [...] blood sugars each week for MFM review 09/02/20240807-CUF-ixrvwromc via zeyad and messaging. Overall stable (< 50% elevated). Some missed values. Sent message to test four times daily and report. 09/09/20249450-YFB-yzuhegdk fasting blood sugars and post prandial values. Sent message to patient and [facility] PARs to schedule follow up ADAPT within the next week. 09/12/24: Follow-up ADAPT visit complete; elevated fasting and postprandial values; patient agreeable to insulin - ordered Lantus 10 units at breakfast and 10 units at bedtime 09/16/20245771-UQZ-dwzczwpar via zeyad and messaging. Overall stable (< [...] Recommend nutrition consult with RDN (Registered Dietitian Computer Operations Technician). Lifestyle changes are also indicated including [...] encounter Miscellaneous Notes * Telephone Encounter - Jordyn Berry OSA [...] filedocumented as of this encounter Care Teams Sex Worker Or Escort Relationship Specialty Start Date End Date Carri Goyal DO [address] [facility] 2 [place] [address] PCP - General Family Medicine 01/05/21 documented as of this encounter
--- OUTSIDE RECORDS SUMMARY | 2024-09-18 10:11 | External Medical Summary | Summary of Care ---
Author Name Unknown Organization [facility] Address [address] [facility] [place] [address] Phone [phone] Care Team Providers Care Passenger Service Supervisor Name Role Phone Carri Goyal DO Primary Care Provider +1- [phone] Reason for Visit * Reason Comments Outpatient Testing Encounter Details Date Type Department Care Team (Late st Contact Info) Description 09/16/2024 11:00 AM EDT Laboratory Laboratory, [facility] [address] [facility] [phone] [facility] [address] [place] [address] Arrived Allergies Active Allergy Reactions Criticality Noted Date [...] 1 Capsule before bedtime. 5 Active Nystatin 679470 UNIT/ML Mouth/Throat Suspension Take 5 mL by [...] blood sugars each week for MFM review 09/02/20249864-OSJ-lhgwfwuri via zeyad and messaging. Overall stable (< 50% elevated). Some missed values. Sent message to test four times daily and report. 09/09/20241248-CPG-cvtmmyrv fasting blood sugars and post prandial values. Sent message to patient and [facility] PARs to schedule follow up ADAPT within the next week. 09/12/24: Follow-up ADAPT visit complete; elevated fasting and postprandial values; patient agreeable to insulin - ordered Lantus 10 units at breakfast and 10 units at bedtime 09/16/20245075-WNL-yyboogohx via zeyad and messaging. Overall stable (< [...] Recommend nutrition consult with RDN (Registered Dietitian Charge Entry Specialist). Lifestyle changes are also indicated including optimizing [...] 09/16/2024) Immunizations Name Administration Dates Next Due HPV [...] PM EST documented as of this encounter Plan of Treatment Upcoming Encounters Date Type Department Care Team (Late st Contact Info) Description 09/16/2024 3:00 PM EDT Nurse Only Gynecology/Obstetrics [facility] [address] [place] [address] Gw, Nurse Obgyn Injection [address] [place] [address] Health Maintenance Due Date Last Done Comments [...] filedocumented as of this encounter Care Teams Passenger Service Supervisor Relationship Specialty Start Date End Date Carri Goyal DO [address] [address] PCP - General Family Medicine 01/05/21 documented as of this encounter
--- OUTSIDE RECORDS SUMMARY | 2024-09-18 10:11 | External Medical Summary | Summary of Care ---
Author Name Unknown Organization [facility] Address [address] [facility] [place] [address] Phone [phone] Care Team Providers Care Aboriginal Education Teacher Name Role Phone Carri Goyal DO Primary Care Provider +1- [phone] Reason for Visit * Reason Onset Date Comments Outpatient Testing 09/16/2024 Advice 09/16/2024 Encounter Details Date Type Department Care Team (Late st Contact Info) Description 09/16/2024 Telephone Gynecology/Obstetrics [facility] [address] [place] [address] [place] Strauss PA-C [address] [place] [address] Outpatient Testing; Advice Allergies Active Allergy Reactions [...] 1 Capsule before bedtime. 5 Active Nystatin 723976 UNIT/ML Mouth/Throat Suspension Take 5 mL by [...] blood sugars each week for MFM review 09/02/20249848-EYF-bojybdqnt via zeyad and messaging. Overall stable (< 50% elevated). Some missed values. Sent message to test four times daily and report. 09/09/20240675-UZK-uocdejep fasting blood sugars and post prandial values. Sent message to patient and [facility] PARs to schedule follow up ADAPT within the next week. 09/12/24: Follow-up ADAPT visit complete; elevated fasting and postprandial values; patient agreeable to insulin - ordered Lantus 10 units at breakfast and 10 units at bedtime 09/16/20249311-KCP-lnmnkthcl via zeyad and messaging. Overall stable (< [...] Recommend nutrition consult with RDN (Registered Dietitian Epic Willow Specialist). Lifestyle changes are also indicated including [...] filedocumented as of this encounter Care Teams Aboriginal Education Teacher Relationship Specialty Start Date End Date Carri Goyal DO [address] [facility] 2 [place] [address] PCP - General Family Medicine 01/05/21 documented as of this encounter
--- OUTSIDE RECORDS SUMMARY | 2024-09-18 10:11 | External Medical Summary | Summary of Care ---
Author Name Unknown Organization [facility] Address [address] [facility] [place] [address] Phone [phone] Care Team Providers Care Metallurgical Laboratory Assistant Name Role Phone Carri Goyal DO Primary Care Provider +1- [phone] Reason for Visit * Reason Onset Date Comments Outpatient Testing 09/16/2024 Encounter Details Date Type Department Care Team (Late st Contact Info) Description 09/16/2024 Telephone Gynecology/Obstetrics [facility] [address] [place] [address] Rachel Strauss PA-C [address] [place] [address] Outpatient Testing Allergies Active Allergy Reactions Criticality [...] 1 Capsule before bedtime. 5 Active Nystatin 234720 UNIT/ML Mouth/Throat Suspension Take 5 mL by [...] blood sugars each week for MFM review 09/02/20246022-JWQ-qydppizgg via zeyad and messaging. Overall stable (< 50% elevated). Some missed values. Sent message to test four times daily and report. 09/09/20245888-XWM-qxdrvppx fasting blood sugars and post prandial values. Sent message to patient and [facility] PARs to schedule follow up ADAPT within the next week. 09/12/24: Follow-up ADAPT visit complete; elevated fasting and postprandial values; patient agreeable to insulin - ordered Lantus 10 units at breakfast and 10 units at bedtime 09/16/20243225-GHJ-hyeyrxwcd via zeyad and messaging. Overall stable (< [...] Recommend nutrition consult with RDN (Registered Dietitian Pasteurizing Supervisor). Lifestyle changes are also indicated including optimizing [...] filedocumented as of this encounter Care Teams Metallurgical Laboratory Assistant Relationship Specialty Start Date End Date Carri Goyal DO [address] [facility] 2 [place] [address] PCP - General Family Medicine 01/05/21 documented as of this encounter
--- OUTSIDE RECORDS SUMMARY | 2024-09-18 10:11 | External Medical Summary | Summary of Care ---
Author Name Unknown Organization [facility] Address [address] [facility] [address] Phone [phone] Care Team Providers Care Machine Cloth Measurer Name Role Phone Carri Goyal DO Primary Care Provider +1- [phone] Reason for Visit * Reason Comments Follow Up Gestational diabetes Encounter Details Date Type Department Care Team (Late st Contact Info) Description 09/12/2024 2:20 PM EDT Telemedicine Pet Groomer Obstetric MFM [facility] [address] [place] [address] Rachel Blanco CRNP [address] [place] [address] Supervision of high risk in third trimester*; 38 weeks gestation of ; Insulin controlled gestational diabetes mellitus (GDM) in third trimester Allergies Active Allergy Reactions Criticality Noted Date Comments Amoxicillin Renal complications 06/18/2024 documented as of this encounter (statuses as of 09/12/2024) Medications Triamcinolone Acetonide 0.1 % External Ointment (Aristocort)Shantel cations:Rash and nonspecific skin eruption Apply 2x daily (or more if itchy instead of scratching) to rash over face/trunk/arms /legs 454 g Active Additional Information Patient not taking.Reported on [...] 1 Capsule before bedtime. 5 Active Nystatin 008829 UNIT/ML Mouth/Throat Suspension Take 5 mL by [...] blood sugars each week for MFM review 09/02/20240975-OIR-xiwnjheil via melba and messaging. Overall stable (< 50% elevated). Some missed values. Sent message to test four times daily and report. 09/09/20245918-HAM-osayczrn fasting blood sugars and post prandial values. Sent message to patient and [facility] PARs to schedule follow up [...] Recommend nutrition consult with RDN (Registered Dietitian Pediatric Orthodontist). Lifestyle changes are also indicated including optimizing [...] PM EST documented as of this encounter Progress Notes * Rachel Blanco CRNP - 09/12/2024 2:28 PM EDT MATERNAL MEDICINE VISIT Patient location: HOME. I was not in a hospital or clinic location. After connecting through televideo, patient was verified with two unique identifiers. Patient (or authorized legal pharmaceutical representative) was then informed that this was a Telemedicine visit and being conducted confidentially over secure lines. Methods to assure confidentiality were taken. Patient acknowledged consent and understanding of privacy and security of the Telemedicine visit. The patient agreed to participate. Ev Julio is a 34 year old year old with intrauterine at 38w2d who presents [facility] for management of diabetes in . CC/HPI: Here for f/u visit. Current issues include: elevated fasting and postprandial values Current management: diet controlled Diet: gestational diabetes diet Exercise: walking Recent growth scan: [facility] US: 08/29/2024 at 36w2d JASIEL: 17.3 cm EFW: 2844g (47% Hadlock) Glucose review: She reports her home blood glucose as following: DATE Fasting 1 hr after Breakfast 1 hr after Lunch 1 hr after Dinner 09/06/24 110 x x x 09/07/24 95 140 152 x 09/08/24 86 127 145 153 09/09/24 105 162 135 x 09/10/24 96 130 145 x 09/11/24 95 126 129 153 09/12/24 92 156 155 x -She has no other blood sugars to report today. -Denies eating overnight. -Reports fasting ~11 hours overnight. -Occasionally having a bedtime snack. Hypoglycemia episodes:N/A REVIEW OF SYSTEMS: headaches: no nausea/vomiting: denies reports movement: yes abdominal pain/tenderness/cramping/contractions: no vaginal bleeding: no vaginal leaking of fluid: no all other systems negative PHYSICAL EXAM: LMP 11/28/2023 (Approximate) Constitutional: pleasant, well-developed, well nourished General: pleasant, alert and oriented Neuro: mood and affect normal, alert and oriented, no acute distress DISCUSSION: -We discussed continuing to test blood sugars 4 times a day (fasting, one hour after breakfast, lunch, and dinner). Encourage compliance with [facility] RPM. -Continue following gestational diabetes diet. -We discussed the sign and symptoms of hypoglycemia (low blood sugar which is <70) and how to respond. If this should happen, we recommend the Rule of 15: 1) Test blood sugar. 2) Eat 15 grams of carbohydrate (choose one) --3 glucose tablets --4-6 oz of juice --8 oz of skim or low-fat milk --6 saltines 3) Wait 15 minutes. 4) Retest blood glucose. 5) If blood glucose less than 80 mg/dl, repeat above steps. -We discussed eating a bedtime snack and fasting 8-10 hours overnight to help with sugar control inthe fasting timeframe. -Encouraged 20-30 minutes a day of exercise (walking, light upper body strength training, yoga, stationary cycling, or swimming). -We discussed that placental hormones often cause a woman who is not diabetic but has predisposing factors before to exhibit insulin resistance and gestational diabetes during . -We discussed the goal of euglycemia in order to create a stable environment for the fetus. She is aware that with diabetes are at increased risk for multiple complications to both mother and fetus. -Recommend starting insulin for elevated blood sugars. Patient agreeable to same. Reviewed insulin administration instruction. I advised her on appropriate technique for administration and she verbalized understanding. -Reviewed how to recognize and treat hypoglycemia. -Recommend 2-hour glucose tolerance testing with 75-gram glucose load during admission (or 6-8 weeks if not completed). -I encouraged the patient to reach out to [facility] in the event that she has any questions regarding diabetes management. Assessment & Plan Supervision of high risk in third trimester 38 weeks gestation of Insulin controlled gestational diabetes mellitus (GDM) in third trimester Orders: Insulin Glargine Solostar 100 UNIT/ML Subcutaneous Solution Pen-injector (Lantus SoloStar); Inject under skin 10 units at breakfast and 10 units at bedtime. Give doses 12 hours apart. BD Pen Needle Mini U/F 31G X 5 MM (Insulin Pen Needle); Use to inject insulin twice daily. RECOMMENDATIONS: Management: ordered Lantus 10 units at breakfast and 10 units at bedtime Recommend twice weekly NSTs starting now for A2GDM. Recommend delivery during the 39th week of by EDC for A2GDM. Follow up for glucose management in 1 week via [facility] Melba. Thank you for allowing us to participate in the care of this patient. Please call with any questions. VALENTIN Sullivan 09/12/2024 3:56 PM documented in this encounter Miscellaneous Notes * Assessment & Plan Note - Rachel Blanco CRNP - 09/12/2024 3:56 PM EDTAssociated Problem(s): GDM (gestational diabetes mellitus) Orders: Insulin Glargine Solostar 100 UNIT/ML Subcutaneous Solution Pen-injector (Lantus SoloStar); Inject under skin 10 units at breakfast and 10 units at bedtime. Give doses 12 hours apart. BD Pen Needle Mini U/F 31G X 5 MM (Insulin Pen Needle); Use to inject insulin twice daily. * Pt Handout (on AVS) - Rachel Blanco CRNP - 09/12/2024 3:15 PM EDT Images from the original note were not included. Lantus Solostar Pen: How to Inject a Dose - Video Let's take a minute to talk about how to use your Lantus SoloStar insulin pen. You will need clean hands, alcohol swabs, and a compatible needle, like BD Ultra-Fine pen needles. You will also need anapproved "sharps container". To dispose of the needles. To view the video go to this web address: [email or web address] Or, scan this QR code with your smart phone © 2024 [employer]. All Rights Reserved. documented in this encounter Plan of Treatment Upcoming Encounters Date Type Department Care Team (Late st Contact Info) Description 09/16/2024 9:00 AM EDT Office Visit Gynecology/Obstetrics Haydee Garza [address] [place] [place] [address] Rachel Strauss PA-C [address] [place] [address] Greg Non Stress Tests Aleksey [address] [place] [address] 09/18/2024 2:00 PM EDT Office Visit Gynecology/Obstetrics Haydee Garza [address] [place] [address] Lucille Carroll PA-C [address] [place] [address] Health Maintenance Due Date Last Done Comments Depression Screening 2003 Pneumococcal Vaccine: Pediatrics (0 to 5 Years) and At-Risk Patients (6 to 18 Years and 19+ Years) (1 of 2 - PCV) 2010 Lipid Panel 2011 COVID-19 Vaccine (1 - 2023- season) 2024 Influenza Vaccine (FLU shot) (Season [...] Not on filedocumented as of this encounter Visit Diagnoses Diagnosis Supervision of high risk in third trimester- Primary Unspecified high-risk 35 weeks gestation of state, incidental Diet controlled gestational diabetes mellitus (GDM) in third trimester Late care Insufficient care Tobacco smoking affecting in third trimester Gestational diabetes mellitus (GDM) in third trimester, gestational diabetes method of control unspecified- Primary 36 weeks gestation of state, incidental Encounter for anatomic survey Supervision of high risk in third trimester- Primary Unspecified high-risk 38 weeks gestation of state, incidental Insulin controlled gestational diabetes mellitus (GDM) in third trimester documented in this encounter Care Teams Machine Cloth Measurer Relationship Specialty Start Date End Date Carri Goyal DO [address] [facility] 2 [place] [address] PCP - General Family Medicine 01/05/21 documented as of this encounter
--- OUTSIDE RECORDS SUMMARY | 2024-09-18 10:11 | External Medical Summary | Summary of Care ---
Author Name Unknown Organization [facility] Address [address] [facility] [place] [address] Phone [phone] Care Team Providers Care Rag Collector Name Role Phone Carri Goyal DO Primary Care Provider +1- [phone] Reason for Visit * Reason Comments Return Visit Non Stress Test Encounter Details Date Type Department Care Team (Late st Contact Info) Description 09/16/2024 9:00 AM EDT Office Visit Gynecology/Obstetric s Haydee Garza [address] [place] [address] Rachel Strauss PA-C [address] [place] [address] Greg Non Stress Tests Aleksey [address] [place] [address] Encounter for supervision of other normal , third trimester*; Late care; Abnormal glucose tolerance in mother complicating ; Insulin controlled gestational diabetes mellitus (GDM) in third trimester; Tobacco smoking affecting in third trimester; Pelvic pain affecting in third trimester, antepartum; Swelling of lower extremity during in third trimester Allergies Active Allergy Reactions [...] Additional Information Patient not taking.Reported on 09/02/2024 MetasetTouch Verio In Vitro Strip (Glucose Blood)Indication s:Diet controlled gestational diabetes mellitus (GDM) in third trimester Use to test blood sugars 4 times daily (fasting, 1 hour after breakfast, lunch, and dinner) 125 Strip 6 5 Active Additional Information Patient not taking.Reported on 09/02/2024 MetasetTouch DelMorizon Lancets 30GIndications:D iet controlled gestational diabetes mellitus [...] 1 Capsule before bedtime. 5 Active Nystatin 701081 UNIT/ML Mouth/Throat Suspension Take 5 mL by [...] Noted Date Diagnosed Date Tobacco smoking complicating 5 Overview (08/26/2024): Currently smoking 5-10 cigarettes/day which [...] blood sugars each week for MFM review 09/02/20242580-FRC-anlmbrpus via zeyad and messaging. Overall stable (< 50% elevated). Some missed values. Sent message to test four times daily and report. 09/09/20247087-UCC-yulsgete fasting blood sugars and post prandial values. Sent message to patient and [facility] PARs to schedule follow up ADAPT within the next week. 09/12/24: Follow-up ADAPT visit complete; elevated fasting and postprandial values; patient agreeable to insulin - ordered Lantus 10 units at breakfast and 10 units at bedtime 09/16/20242941-USP-mwavlviil via zeyad and messaging. Overall stable (< [...] and 3'GTT results reviewed. Working with ADAPT. Carreno reports thus far her sugars have been [...] Recommend nutrition consult with RDN (Registered Dietitian Rug Dry Room Attendant). Lifestyle changes are also indicated including optimizing [...] 09/01/2024 Does the household have a re lar source of income? (Household - for ages [...] PM EST documented as of this encounter Last Filed Vital Signs Vital Sign Reading Time Taken Comments Blood Pressure 114/68 09/16/2024 9:33 AM EDT Pulse - - Temperature - - Respiratory Rate - - Oxygen Saturation - - Inhaled Oxygen Concentration - - Weight 94.8 kg (209 lb) 09/16/2024 9:33 AM EDT Height 163.6 cm (5' 4.4") 09/16/2024 9:33 AM EDT Body Mass Index 35.43 09/16/2024 9:33 AM EDT documented in this encounter Progress Notes * Rachel Strauss PA-C - 09/16/2024 9:45 AM EDT Ev Julio is a 34 year old female here for NST appointment at 38w6d Her Estimated Date of Delivery: 09/24/24 REVIEW OF SYSTEMS She affirms movement. Denies vaginal bleeding, LOF, contractions. Patient reporting elevated BP readings at home. States BP prior to visit today 150s/90s. Has also been having some dizziness that subsides with rest. Reporting bilateral LE swelling to her feet and ankles. PHYSICAL EXAM Filed Vitals: 09/16/24 0933 BP: 114/68 Weight: 94.8 kg (209 lb) Height: 1.636 m (5' 4.4") ASSESSMENT assessment with Non-stress Test completed on 09/16/2024 at 38w6d weeks gestation for indication of GDMA2. heart baseline: 150 bpm Variability: Moderate Decelerations: absent Accelerations: present Contractions: None. Tocometer needed zeroed starting at 0940. NST start time: 0935 NST stop time: 0956 NST strip reviewed, interpreted, and approved by OB provider, Rachel Strauss PA-C. NST strip stored in clinic storage file ASSESSMENT/PLAN Encounter for supervision of other normal , third trimester (Primary) Late care Abnormal glucose tolerance in mother complicating Insulin controlled gestational diabetes mellitus (GDM) in third trimester Tobacco smoking affecting in third trimester Pelvic pain affecting in third trimester, antepartum - CULTURE, URINE, QUANTITATIVE Swelling of lower extremity during in third trimester - PROTEIN/ CREATININE RATIO, URINE - URINALYSIS OBSTETRICS, POINT OF CARE - Will order labs to evaluate further. Insufficient sample provided in clinic today - will call andencourage to complete confirmatory testing at the lab if able. - Pre eclampsia/ED warning signs and precautions given. Supervision of - labor precautions and kick counts reviewed - IOL scheduled 09/18 at [facility]. Instructions given. RTO PRN with further concerns. Rachel Strauss PA-C 09/16/2024 documented in this encounter Miscellaneous Notes * Result Encounter Note - Rachel Strauss PA-C - 09/16/2024 10:10 AM EDT Sent for PCR and urine culture. Rachel Strauss PA-C documented in this encounter Plan of Treatment Pending Results Name Type Priority Associated Diagnoses Date /Time CULTURE, URINE, QUANTITATIVE Lab Routine Pelvic pain affecting in third trimester, antepartum 09/16/2024 10:53 AM EDT PROTEIN/ CREATININE RATIO, URINE Lab Routine Swelling of lower extremity during in third trimester 09/16/2024 10:53 AM EDT Health Maintenance Due Date Last Done Comments [...] Not on filedocumented as of this encounter Procedures Procedure Name Priority Date/Time Associated Diagnosis Comments URINALYSIS OBSTETRICS, POINT OF CARE Routine 09/16/2024 10:06 AM EDT Swelling of lower extremity during in third trimester documented in this encounter Results * (ABNORMAL) URINALYSIS OBSTETRICS, POINT OF CARE (09/16/2024 10:06 AM EDT) Color, Urine Yellow Light Yellow, Yellow 09/16/2024 10:09 AM EDT [facility] Clarity, Urine Clear Clear 09/16/2024 10:09 AM EDT [facility] Glucose, Urine Negative Negative mg/dL 09/16/2024 10:09 AM EDT [facility] Bilirubin, Urine Negative Negative 09/16/2024 10:09 AM EDT [facility] Ketone, Urine Negative Negative mg/dL 09/16/2024 10:09 AM EDT [facility] Specific Freeborn, Urine 1.020 1.003 - 1.030 09/16/2024 10:09 AM EDT [facility] Blood, Urine Negative Negative 09/16/2024 10:09 AM EDT [facility] pH, Urine 7.0 5.0, 5.5, 6.0, 6.5, 7.0, 7.5 units 09/16/2024 10:09 AM EDT [facility] Protein, Urine 30(A) Negative mg/dL 09/16/2024 10:09 AM EDT [facility] Urobilinogen, Urine 0.2 0.2, 1.0 mg/dL 09/16/2024 10:09 AM EDT [facility] Nitrite, Urine Negative Negative 09/16/2024 10:09 AM EDT [facility] Esterase, Urine Small(A) Negative 09/16/2024 10:09 AM EDT [facility] Urine 09/16/2024 10:0 6 AM EDT 09/16/2024 10:09 AM EDT us Rachel Strauss PA-C LAB POINT OF CARE TEST DOCKED DEVICE UNSOLICITED RESULTS Final Result [facility] [address] [place] [address] documented in this encounter Visit Diagnoses Diagnosis Supervision of [...] gestational diabetes mellitus (GDM) in third trimester Encounter for supervision of other normal , third trimester- Primary Late care Insufficient care Abnormal glucose tolerance in mother complicating Abnormal maternal glucose tolerance, complicating , childbirth, or the puerperium, unspecified as to episode of care Insulin controlled gestational diabetes mellitus (GDM) in third trimester Tobacco smoking affecting in third trimester Pelvic pain affecting in third trimester, antepartum Swelling of lower extremity during in third trimester documented in this encounter Care Teams Rag Collector Relationship Specialty Start Date End Date Carri Goyal DO [address] [facility] [address] [place] [address] PCP - General Family Medicine 01/05/21 documented as of this encounter
--- OUTSIDE RECORDS SUMMARY | 2024-09-18 10:11 | External Medical Summary | Summary of Care ---
Author Name Unknown Organization [facility] Address [address] [facility] [place] [address] Phone [phone] Care Team Providers Care Vending Machine Mechanic Name Role Phone Carri Goyal DO Primary Care Provider +1- [phone] Encounter Details Date Type Department Care Team (Late st Contact Info) Description 09/03/2024 Telephone Gynecology/Obstetrics [facility] [address] [place] [address] Gabrielle Bowling CRNP [address] [place] [address] Allergies Active Allergy Reactions Criticality Noted Date Comments Amoxicillin Renal complications 06/18/2024 documented as of this encounter (statuses as of 09/04/2024) Medications Triamcinolone Acetonide 0.1 % External Ointment [...] 1 Capsule before bedtime. 5 Active Nystatin 913746 UNIT/ML Mouth/Throat Suspension Take 5 mL by mouth in the morning and 5 mL at noon and 5 mL in the evening and 5 mL before bedtime. 60 mL 5 Active documented as of this encounter (statuses as of 09/04/2024) Active Problems Problem Noted Date Diagnosed Date [...] well. GDM (gestational diabetes mellitus) 08/20/2024 Overview (09/02/2024): Diagnosed at 35 weeks Nutrition referral ordered; [...] blood sugars each week for MFM review 09/02/20248766-DGM-itcixgqjo via zeyad and messaging. Overall stable (< 50% elevated). Some missed values. Sent message to test four times daily and report. Assessment & Plan (08/29/2024 2:08 PM EDT): [...] Recommend nutrition consult with RDN (Registered Dietitian Skate Boarder). Lifestyle changes are also indicated including optimizing [...] as of this encounter (statuses as of 09/04/2024) Resolved Problems Problem Noted Date Diagnosed Date Resolved Date Routine child health exam 01/06/2003 PROPHY. VACCINATION AGAINST TETANUS-DIPHTHERIA (TD) 01/06/2003 08/04/2009 Other acne 01/06/2003 08/04/2009 documented as of this encounter (statuses as of 09/04/2024) Immunizations Name Administration Dates Next Due DTP [...] encounter Miscellaneous Notes * Telephone Encounter - Gabrielle Bowling CRNP - 09/04/2024 7:57 AM EDT Tooth pain is not managed by OB. * Telephone Encounter - Akosua Martin RN - 09/03/2024 4:03 PM EDT Patient calling in asking if Gabrielle varghese be willing to send her in some numbing medication for her tooth pain. She is on antibiotics currently for infected tooth since she is unable to have it removed until after she delivers. Patient currently using Orajel. Per patient the dentist is not willing to prescribe her anything else even with dental letter. She also called her PCP but is waiting to hear back from them. I advised that I am not sure Gabrielle will be able to send In anything else at this timeand advised her to continue orajel and contact her dentist for additional recommendations. documented in this encounter Plan of Treatment [...] filedocumented as of this encounter Care Teams Vending Machine Mechanic Relationship Specialty Start Date End Date Carri Goyal DO [address] [address] PCP - General Family Medicine 01/05/21 documented as of this encounter
--- OUTSIDE RECORDS SUMMARY | 2024-09-18 10:11 | External Medical Summary | Summary of Care ---
Author Name Unknown Organization [facility] Address [address] [place] [address] Phone [phone] Care Team Providers Care Porcelain Finish Sprayer Name Role Phone Carri Goyal DO Primary Care Provider +1- [phone] Reason for Visit * Reason Onset Date Comments Referral 08/20/2024 Encounter Details Date Type Department Care Team (Late st Contact Info) Description 08/20/2024 Telephone Servicing Rep Obstetrics Maternal Medicine, [place] [address] [place], [place] [id number] [place], Nurse Servicing Rep [facility] [address] [place], [place] [id number] Referral Allergies Active Allergy Reactions Criticality Noted Date Comments Amoxicillin Renal complications 06/18/2024 documented as of this encounter (statuses as of 09/09/2024) Medications Triamcinolone Acetonide 0.1 % External Ointment [...] Forte Oral Tablet Take by mouth. Act dedira OneTouch Verio Flex System w/Device KitIndications:D iet [...] Additional Information Patient not taking.Reported on 09/02/2024 documented as of this encounter (statuses as of 09/09/2024) Active Problems Problem Noted Date Diagnosed Date [...] well. GDM (gestational diabetes mellitus) 08/20/2024 Overview (09/09/2024): Diagnosed at 35 weeks Nutrition referral ordered; [...] blood sugars each week for MFM review 09/02/20243955-TAS-buqmrdnqs via zeyad and messaging. Overall stable (< 50% elevated). Some missed values. Sent message to test four times daily and report. 09/09/20249579-LRE-swcqppkv fasting blood sugars and post prandial values. Sent message to patient and [facility] PARs to schedule follow up ADAPT within the next week. Assessment & Plan (08/29/2024 2:08 PM EDT): [...] Recommend nutrition consult with RDN (Registered Dietitian Gate Technician). Lifestyle changes are also indicated including [...] as of this encounter (statuses as of 09/09/2024) Resolved Problems Problem Noted Date Diagnosed Date Resolved Date Routine child health exam 01/06/2003 PROPHY. VACCINATION AGAINST TETANUS-DIPHTHERIA (TD) 01/06/2003 08/04/2009 Other acne 01/06/2003 08/04/2009 documented as of this encounter (statuses as of 09/09/2024) Immunizations Name Administration Dates Next Due DTP [...] drink = 0.6 oz pur e alcohol) Hunger Vital Sign Answer Date Recorded Within [...] encounter Miscellaneous Notes * Telephone Encounter - Tesha Woodruff OSA - 09/09/2024 1:43 PM EDT Pt called, then Phone call to patient. Left message on [employer]'s voice mail. Encouraged patient to return call to [facility] to assist with scheduling. * Telephone Encounter - Tesha Woodruff OSA - 09/09/2024 1:43 PM EDT Images from the original note were not included. needs f/u adapt appt WITHIN ONE WEEK-thanks Received: Today Noble Escobedo, RN P [facility] Referral Scheduling Pool/Class * Telephone Encounter - Anahi Quiñonez CCMA - 08/22/2024 11:57 AM EDT Please schedule for 45 MINUTE ADAPT WITH OIL PROGRAM COMPLIANCE SPECIALIST, in time frame of within 1 week at location [facility] with the indication of GDM. * Telephone Encounter - Tesha Woodruff OSA - 08/21/2024 2:24 PM EDT Spoke with Ev. Appointment scheduled. Patient aware of date, time and location of Maternal FetalMedicine appointment. * Telephone Encounter - Tesha Woodruff OSA - 08/20/2024 1:50 PM EDT Phone call to patient. Left message on Ev's voice mail. [facility] * Telephone Encounter - Ena Garcia LPN - 08/20/2024 1:00 PM EDT Estimated Date of Delivery: 09/24/24 Please schedule for 45 MINUTE ADAPT WITH OIL PROGRAM COMPLIANCE SPECIALIST, in time frame of within 1 week at location [facility] with the indication of GDM. Please schedule anatomy within a week Referring Provider: Gabrielle Bowling CRNP documented in this encounter Plan of Treatment Upcoming Encounters Date Type Department Care Team (Late st Contact Info) Description 09/12/2024 9:15 AM EDT [facility] [address] [place] [address] Lucille Carroll PA-C [address] [place] [address] Health Maintenance Due Date Last Done Comments [...] filedocumented as of this encounter Care Teams Porcelain Finish Sprayer Relationship Specialty Start Date End Date Carri Goyal DO [address] [place] [address] [place] [address] PCP - General Family Medicine 01/05/21 documented as of this encounter
--- OUTSIDE RECORDS SUMMARY | 2024-09-18 10:11 | External Medical Summary | Summary of Care ---
Author Name Unknown Organization [facility] Address [address] [place] [address] Phone [phone] Care Team Providers Care Deckhand Crab Boat Name Role Phone Carri Goyal DO Primary Care Provider +1- [phone] Reason for Visit * Reason Onset Date Comments Referral 08/20/2024 Encounter Details Date Type Department Care Team (Late st Contact Info) Description 08/20/2024 Telephone Occupational Nurse Obstetrics Maternal Medicine, [place] [address] [place], [place] [phone] [place], Nurse Occupational Nurse [facility] [address] [place], [place] [phone] Referral Allergies Active Allergy Reactions Criticality Noted [...] blood sugars each week for MFM review 09/02/20245781-SPK-jjtfgvxaa via zeyad and messaging. Overall stable (< 50% elevated). Some missed values. Sent message to test four times daily and report. 09/09/20241197-PPI-lrvhexwv fasting blood sugars and post prandial values. Sent message to patient and [facility] PARs to schedule follow up ADAPT within [...] Recommend nutrition consult with RDN (Registered Dietitian Employment Service Specialist). Lifestyle changes are also indicated including [...] Phone call to patient. Left message on [employer]'s voice mail. Encouraged patient to return call to [facility] to assist with scheduling. * Telephone Encounter - Tesha Woodruff OSA - 09/09/2024 1:43 PM EDT Images from the original note were not included. needs f/u adapt appt WITHIN ONE WEEK-thanks Received: Today Noble Escobedo, RN P [facility] Referral Scheduling Pool/Class * Telephone Encounter - Anahi Quiñonez CCMA - 08/22/2024 11:57 AM EDT Please schedule for 45 MINUTE ADAPT WITH SPOT SPRAYER, in time frame of within 1 week at location [facility] with the indication of GDM. * Telephone Encounter - Tesha Woodruff OSA - 08/21/2024 2:24 PM EDT Spoke with Ev. Appointment scheduled. Patient aware of date, time and location of Maternal FetalMedicine appointment. * Telephone Encounter - Tesha Woodruff OSA - 08/20/2024 1:50 PM EDT Phone call to patient. Left message on Ev's voice mail. [facility] * Telephone Encounter - Ena Garcia LPN - 08/20/2024 1:00 PM EDT Estimated Date of Delivery: 09/24/24 Please schedule for 45 MINUTE ADAPT WITH SPOT SPRAYER, in time frame of within 1 week at location [facility] with the indication of GDM. Please schedule anatomy within a week Referring Provider: Gabrielle Bowling CRNP documented in this encounter Plan of Treatment Upcoming Encounters Date Type Department Care Team (Late st Contact Info) Description 09/12/2024 9:15 AM EDT [facility] [address] [place] [address] Lucille Carroll PA-C [address] [place] [address] Health Maintenance Due Date Last Done Comments [...] filedocumented as of this encounter Care Teams Deckhand Crab Boat Relationship Specialty Start Date End Date Carri Goyal DO [address] [place] [address] [place] [address] PCP - General Family Medicine 01/05/21 documented as of this encounter
--- OUTSIDE RECORDS SUMMARY | 2024-09-18 10:11 | External Medical Summary | Summary of Care ---
Author Name Unknown Organization [facility] Address [address] [facility] [place] [address] Phone [phone] Care Team Providers Care Curtain Cutter Hand Name Role Phone Carri Goyal DO Primary Care Provider +1- [phone] Reason for Visit * Reason Comments Return Visit Encounter Details Date Type Department Care Team (Late st Contact Info) Description 09/12/2024 9:15 AM EDT Office Visit Gynecology/Obstetric s Haydee Garza [address] [place] [address] Lucille Carroll PA-C [address] [place] [address] Encounter for supervision of other normal , second trimester*; Late care; Abnormal glucose tolerance in mother complicating ; Gestational diabetes mellitus (GDM) in third trimester, gestational diabetes method of control unspecified; Tobacco smoking affecting in third trimester Allergies Active Allergy Reactions [...] 1 Capsule before bedtime. 5 Active Nystatin 223627 UNIT/ML Mouth/Throat Suspension Take 5 mL by [...] blood sugars each week for MFM review 09/02/20249453-YEC-mkfvhtqqg via zeyad and messaging. Overall stable (< 50% elevated). Some missed values. Sent message to test four times daily and report. 09/09/20240982-CIX-mnlsolxt fasting blood sugars and post prandial values. Sent message to patient and [facility] PARs to schedule follow up ADAPT within [...] Recommend nutrition consult with RDN (Registered Dietitian Clerk Cashier). Lifestyle changes are also indicated including optimizing [...] Sign Reading Time Taken Comments Blood Pressure 132/84 09/12/2024 9:07 AM EDT Pulse - - Temperature - - Respiratory Rate - - Oxygen Saturation - - Inhaled Oxygen Concentration - - Weight 94.3 kg (208 lb) 09/12/2024 9:07 AM EDT Height 163.6 cm (5' 4.4") 09/12/2024 9:07 AM EDT Body Mass Index 35.26 09/12/2024 9:07 AM EDT documented in this encounter Progress Notes * Lucille Carroll PA-C - 09/12/2024 9:38 AM EDT 38w2d GDM, aware needs to call MFM to schedule appt back with ADAPT team. Has number, discussed calling back today. She states will. Would like cervical check. Increased pelvic pressure. BH contractions. Denies VB, LOF. Baby is active. Continues with BLE edema from last visit. Equal both legs. Has compression stockings. Reviewed comfort measures. Would like to schedule IOL after 40 weeks. Discussed if started on therapy for GDM will need IOL in39 weeks. She understands. Utility Inspector Documentation Provider requested steam plant operator. Name of steam plant operator: Cristina Roman LPN BME: cervix posterior unable to reach d/t position of baby's head SSE: external anatomy normal, cervix visually closed, no discharge form os, normal physiologic discharge. Labor precautions -- feels confident she knows what to watch out for. RTC in 1 week Lucille Carroll PA-C documented in this encounter Nursing Notes * Cristina Luna LPN - 09/12/2024 9:11 AM EDT 38w2d BL swelling Pelvic pressure Requests cervical check documented in this encounter Plan of Treatment Upcoming Encounters Date Type Department Care Team (Late st Contact Info) Description 09/18/2024 2:00 PM EDT Office Visit Gynecology/Obstetrics Haydee Garza [address] [place] [address] Lucille Carroll PA-C [address] [place] [address] Health Maintenance Due Date Last Done Comments [...] of state, incidental Encounter for anatomic survey Encounter for supervision of other normal , second trimester- Primary Late care Insufficient care Abnormal glucose tolerance in mother complicating Abnormal maternal glucose tolerance, complicating , childbirth, or the puerperium, unspecified as to episode of care Gestational diabetes mellitus (GDM) in third trimester, gestational diabetes method of control unspecified Tobacco smoking affecting in third trimester documented in this encounter Care Teams Curtain Cutter Hand Relationship Specialty Start Date End Date Carri Goyal DO [address] [address] PCP - General Family Medicine 01/05/21 documented as of this encounter
--- OUTSIDE RECORDS SUMMARY | 2024-09-18 10:11 | External Medical Summary ---
Author Name Unknown Address Unknown Organization [id number]:[facility] [address] [place] [address] Laboratory Report Ordering Provider Test Date Status HUY RICE 09/16/2024 10:06:00 Final Observation Date Value Abnormality Reference (Units ) Status Color of Urine by Auto 09/16/2024 10:06:00 Yellow Light Yellow, Yellow Final Clarity, Urine 09/16/2024 10:06:00 Clear Clear Final Glucose [Mass/volume] in Urine by Automated test strip 09/16/2024 10:06:00 Negative Negative (mg/dL) Final Bilirubin.total [Presence] in Urine by Automated test strip 09/16/2024 10:06:00 Negative Negative Final Ketones [Mass/volume] in Urine by Automated test strip 09/16/2024 10:06:00 Negative Negative (mg/dL) Final Specific gravity, Urine 09/16/2024 10:06:00 1.020 1.003-1.030 Final Hemoglobin [Presence] in Urine by Automated test strip 09/16/2024 10:06:00 Negative Negative Final pH, Urine 09/16/2024 10:06:00 7.0 5.0, 5.5, 6.0, 6.5, 7.0, 7.5 (units) Final Protein [Mass/volume] in Urine by Automated test strip 09/16/2024 10:06:00 30 Abnormal Negative (mg/dL) Final Urobilinogen, Urine 09/16/2024 10:06:00 0.2 0.2, 1.0 (mg/dL) Final Nitrite [Presence] in Urine by Automated test strip 09/16/2024 10:06:00 Negative Negative Final Leukocyte esterase [Presence] in Urine by Automated test strip 09/16/2024 10:06:00 Small Abnormal Negative Final Performing Location [facility] [address] [place] [address]
--- OUTSIDE RECORDS SUMMARY | 2024-09-18 10:12 | External Medical Summary ---
Author Name Unknown Address Unknown Organization [id number]:[facility] [place] [address] [place] [address] Laboratory Report Ordering Provider Test Date Status YONATHAN LUNA 09/02/2024 14:06:39 Final Observation Date Value Abnormality Reference (Units ) Status Streptococcus agalactiae DNA [Presence] in Specimen by JERMAN with probe detection 09/02/2024 14:06:39 Negative Negative Final No Group B Streptococcus det ected by culture-enhanced PCR (amplified probe). GBS GBSCT - [facility] 09/02/2024 14:06:39 0.0 Final GBS SPCCT - [facility] 09/02/2024 14:06:39 31.6 Final Performing Location [facility] [place] [address] [place] [address]
--- OUTSIDE RECORDS SUMMARY | 2024-09-18 10:12 | External Medical Summary | Summary of Care ---
Author Name Unknown Organization [facility] Address [address] [place] [address] Phone [phone] Care Team Providers Care Database Support Name Role Phone Carri Goyal DO Primary Care Provider [phone]- [phone] Reason for Visit * Reason Onset Date Comments Home Monitoring Orders Only 08/28/2024 Encounter Details Date Type Department Care Team ([facility] st Contact Info) Description 08/28/2024 Home Monitoring Care Coordination [address] [place] [address] Rachel Blanco CRNP [address] [place] [address] GDM (gestational diabetes mellitus)* Allergies Active Allergy Reactions Criticality Noted Date Comments Amoxicillin Renal complications 06/18/2024 documented as of this encounter (statuses as of 08/29/2024) Medications Triamcinolone Acetonide 0.1 % External Ointment [...] Active Additional Information Patient not taking.Reported on 08/26/2024 OneTouch Verio In Vitro Strip (Glucose Blood)Indication s:Diet controlled gestational diabetes mellitus (GDM) in third trimester Use to test blood sugars 4 times daily (fasting, 1 hour after breakfast, lunch, and dinner) 125 Strip 6 5 Active Additional Information Patient not taking.Reported on 08/26/2024 OneTouch Delica Lancets 30GIndications:D iet controlled gestational diabetes mellitus (GDM) in third trimester Use to test blood sugars 4 times daily (fasting, 1 hour after breakfast, lunch, and dinner) 200 Each 6 5 Active Additional Information Patient not taking.Reported on 08/26/2024 OneTouch Verio In Vitro Strip (Glucose Blood)Indication [...] breakfast, lunch, and dinner). 200 Each 6 Active documented as of this encounter (statuses as of 08/29/2024) Active Problems Problem Noted Date Diagnosed Date [...] well. GDM (gestational diabetes mellitus) 08/20/2024 Overview (08/26/2024): Diagnosed at 35 weeks Nutrition referral ordered; [...] blood sugars each week for MFM review Assessment & Plan (08/26/2024 8:56 AM EDT): [...] Recommend nutrition consult with RDN (Registered Dietitian Equal Opportunity Assistant). Lifestyle changes are also indicated including optimizing [...] as of this encounter (statuses as of 08/29/2024) Resolved Problems Problem Noted Date Diagnosed Date Resolved Date Routine child health exam 01/06/2003 PROPHY. VACCINATION AGAINST TETANUS-DIPHTHERIA (TD) 01/06/2003 08/04/2009 Other acne 01/06/2003 08/04/2009 documented as of this encounter (statuses as of 08/29/2024) Immunizations Name Administration Dates Next Due HPV [...] 0.6 oz pur e alcohol) denies in Estimated Date of Delivery Comme nts Yes 09/24/2024 Based on Ultraso und Sex and Gender Information Value Date Recorded Sex Assigned at Female 06/23/2024 3:19 PM EST Legal Sex Female 6:01 AM EST Gender Identity Female 06/23/2024 3:19 PM EST Sexual Orientation Straight 06/23/2024 3: 19 PM EST documented as of this encounter Progress Notes * Jaxon Vaughn, Community Health E Learning Designer - 08/28/2024 4:22 PM EDT Patient has been successfully enrolled to the [id number] Diabetes Management in program. Standard alarm settings have been set as follows: Singular glucose level > 200 Singular glucose level < 60 Patient has been advised to take blood sugar four times a day (fasting upon waking, and one hour after each meal). Patient has been oriented to remote patient monitoring, assisted with initial device set-up, and provided with instruction and education regarding the program. Patient understands that this monitoring should not be used as a replacement for emergency and/or urgent care. If patient experiences any urgent symptoms, they are aware to call office/concrete pouring supervisor provider for additional instructions. In emergency situations, they will report directly to the ED for further evaluation. If you would like to customize the alert parameters and/or instructions for this patient, please let me know and we can have them changed. Jaxon Vaughn Community Programs Specialist documented in this encounter Plan of Treatment Upcoming Encounters Date Type Department Care Team (Late st Contact Info) Description 08/29/2024 10:45 AM EDT Office Visit Comedian OB Maternal Medicine [facility] [place] [address] [place] [address] [address] [place] [address] Sabine Caceres, DO [address] [facility] [address] 08/29/2024 10:45 AM EDT Imaging Maternal Medicine [facility] [place] [address] [place] [address] [address] [place] [address] 09/02/2024 1:30 PM EDT Office Visit Gynecology/Obstetrics [facility] [address] [place] [address] Gabrielle Bowling CRNP [address] [place] [address] 09/03/2024 8:00 AM EDT Telemedicine Virtual, Nutrition Services [address] [place] [address] Felicita Napoles, RDN [address] [place] [address] [place] [address] Health Maintenance Due Date Last Done Comments Depression Screening 2003 Pneumococcal Vaccine: Pediatrics (0 to 5 Years) and At-Risk Patients (6 to 18 Years and 19+ Years) (1 of 2 - PCV) 2010 Lipid Panel 2011 COVID-19 Vaccine ( - 2023- season) 2024 Influenza Vaccine (FLU [...] care Tobacco smoking affecting in third trimester GDM (gestational diabetes mellitus)- Primary Abnormal maternal glucose tolerance, complicating , childbirth, or the puerperium, unspecified as to episode of care documented in this encounter Care Teams Database Support Relationship Specialty Start Date End Date Carri Goyal DO [address] [address] PCP - General Family Medicine 01/05/21 documented as of this encounter
--- OUTSIDE RECORDS SUMMARY | 2024-09-18 10:12 | External Medical Summary | Summary of Care ---
Author Name Unknown Organization [facility] Address [address] [facility] [place] [address] Phone [phone] Care Team Providers Care Program Architect Name Role Phone Carri Goyal DO Primary Care Provider +1- [phone] Encounter Details Date Type Department Care Team (Late st Contact Info) Description 09/03/2024 Telephone Gynecology/Obstetrics [facility] [address] [place] [address] Gabrielle Bowling CRNP [address] [place] [address] Allergies Active Allergy Reactions Criticality Noted Date [...] 1 Capsule before bedtime. 5 Active Nystatin 002296 UNIT/ML Mouth/Throat Suspension Take 5 mL by [...] blood sugars each week for MFM review [id number] via zeyad and messaging. Overall stable (< [...] Recommend nutrition consult with RDN (Registered Dietitian Customer Professional). Lifestyle changes are also indicated including optimizing [...] filedocumented as of this encounter Care Teams Program Architect Relationship Specialty Start Date End Date Carri Goyal DO [address] [address] PCP - General Family Medicine 01/05/21 documented as of this encounter
--- OUTSIDE RECORDS SUMMARY | 2024-09-18 10:12 | External Medical Summary | Summary of Care ---
Author Name Unknown Organization [facility] Address [address] [facility] [place] [address] Phone [phone] Care Team Providers Care Fashion Consultant Name Role Phone Carri Goyal DO Primary Care Provider [phone] Reason for Visit * Reason Comments DSMT INITIAL * Evaluate & Treat - Unlimited Visits (Within 10 days (routine)) - Authorized Specialty Diagnoses / Procedures Referred By Conttomasa t Referred To Contact Api Architect / Nutrition Services Diagnoses Diet controlled gestational diabetes mellitus (GDM) in third trimester Gabrielle Bowling CRNP [address] [place] [address] Phone: tel: fax: Referral ID Status Reason Start Date Expiration Date Visits Requested Visits Authorized [id number] Authorized Specialty Services Required 08/20/2024 08/21/[phone] Encounter Details Date Type Department Care Team (Late st Contact Info) Description 09/03/2024 8:00 AM EDT Telemedicine Virtual, [facility] [address] [facility] [address] Felicita Napoles, KITTY [address] [place] [place] [address] Diet controlled gestational diabetes mellitus (GDM) in third trimester*; Late care; Encounter for supervision of other normal , second trimester; Abnormal glucose tolerance in mother complicating Allergies Active Allergy Reactions Criticality Noted Date Comments Amoxicillin Renal complications 06/18/2024 documented as of this encounter (statuses as of 09/03/2024) Medications Triamcinolone Acetonide 0.1 % External Ointment [...] Oral Tablet Take by mouth. Act deidra Quadrant 4 Systems CorporationTouch Verio Flex System w/Device KitIndications:D iet controlled [...] 1 Capsule before bedtime. 5 Active Nystatin 709220 UNIT/ML Mouth/Throat Suspension Take 5 mL by mouth in the morning and 5 mL at noon and 5 mL in the evening and 5 mL before bedtime. 60 mL 5 Active documented as of this encounter (statuses as of 09/03/2024) Active Problems Problem Noted Date Diagnosed Date [...] blood sugars each week for MFM review 09/02/[id number] via zeyad and messaging. Overall stable (< [...] Recommend nutrition consult with RDN (Registered Dietitian Carburetor Specialist). Lifestyle changes are also indicated including [...] as of this encounter (statuses as of 09/03/2024) Resolved Problems Problem Noted Date Diagnosed Date Resolved Date Routine child health exam 01/06/2003 PROPHY. VACCINATION AGAINST TETANUS-DIPHTHERIA (TD) 01/06/2003 08/04/2009 Other acne 01/06/2003 08/04/2009 documented as of this encounter (statuses as of 09/03/2024) Immunizations Name Administration Dates Next Due HPV [...] PM EST documented as of this encounter Patient Instructions * Patient Instructions* Felicita Napoles RDN - 09/03/2024 9:22 AM EDT Nutrition: To improve blood glucose control I will follow meal plan of Breakfast: 15-30 grams carbohydrate Snack: 15-30 grams carbohydrate Lunch: 30-60 grams carbohydrate Snack: 15-30 grams carbohydrate Dinner: 30-60 grams carbohydrate Bedtime snack: 15-30 grams carbohydrate documented in this encounter Progress Notes * Felicita Napoles RDN - 09/03/2024 8:00 AM EDT DIABETES SELF-MANAGEMENT TRAINING Gestational Diabetes Group Session Date: 09/03/2024 Patient location: HOME. I was in a hospital or clinic location. After connecting through [employer],patient was verified with two unique identifiers. Patient (or authorized legal sales representative printing) was then informed that this was a Telemedicine visit and being conducted confidentially over secure lines. Methods to assure confidentiality were taken. Patient acknowledged consent and understanding of pr ivacy and security of the Telemedicine visit. The patient agreed to participate. ADA referral in place? Yes What diabetes concerns and/or barriers to care would you like to discuss in your appointment: Diabetes with gestational diabetes. Here for education. What is gestational diabetes? What are the risks to me and my baby? When do I test my blood sugar? Will I need medication for gestational diabetes? What diet do I follow for gestational diabetes? What does exercise do to my blood sugar? Will this go away for me and the baby? What type of diabetes to you have? Gestational Diabetes DSMT Initial Visit Assessment of Content Areas: Choose the answer that represents the participant's competency in each area. All need to be assessed at initial. Areas taught must match intervention. If content area not assessed and/or intervened today, it will be deferred to future session. Diabetes disease process and treatment process: Needs instruction (1) Incorporating nutrition management into lifestyle: Needs instruction (1) Incorporating physical activity into lifestyle: Needs instruction (1) Using medications safely: Needs instruction (1) Monitoring blood glucose, interpreting and using results: Needs instruction (1) Prevention, detection, and treatment of acute complications: Needs instruction (1) Prevention, detection, and treatment of chronic complications: Needs instruction (1) Developing strategies to address psychosocial issues: Needs instruction (1) Developing strategies to promote health/change behavior: Needs instruction (1) Nutrition Diagnosis: Food and Nutrition Related Knowledge Deficit related to limited prior nutrition- related education as evidenced by referral to be seen for gestational diabetes and enrolled in group session for education. DSMT/ Diabetes MNT intervention: Pathophysiology: Defined disease process. Defined and discussed role of insulin resistance. Nutrition: GDM nutrition: Educated on rationale and guidelines of nutritional management of GDM. Emphasis on need for carbohydrate control/consistency with structured meal schedule. Taught participant how to read a food label. Importance of also meeting nutritional needs of reinforced. Stressed importance of avoiding sugar sweetened beverages, fruit juices. Encouraged bedtime snack 8-10 hours before fasting test the next day. Recommended starting meal pattern provided = Breakfast: 15-30 grams carbohydrate Snack: 15-30 grams carbohydrate Lunch: 30-60 grams carbohydrate Snack: 15-30 grams carbohydrate Dinner: 30-60 grams carbohydrate Bedtime snack: 15-30 grams carbohydrate Educated on using the plate method as a guide for balancing meals during Educated on nutrition related items affecting such as calcium, fish, caffeine, herbal supplements, and preventing listeria. Encouraged prenatals with folic acid, potassium iodide, and DHA/EPA. Physical Activity: Educated on the role of physical activity on glucose control. Educated on the options for physical activity given participant's diabetes complications or other health issues. Medication: Reviewed that due to hormonal insulin resistance in , there may be a need for medication to achieve blood glucose levels in target. Monitoring: blood glucose and targets: Educated on blood glucose monitoring and recommended testing times of fasting and 1-OR 2-hour post meals with targets of less than 95 fasting, 1-hour post meal ofless than 140 OR 2-hour post meal of less than 120. Encouraged logging blood glucoses and reported readings to care team. Provided troubleshooting trick/tips for Current Health Zeyad (Maternal Medicine) Educated on ways to improve fasting glucose levels Chronic Complications: Educated on the risks of uncontrolled blood glucose during and post for mom and /. Promote health/Change behavior: Reviewed importance of glucose screening after having gestational diabetes. Participant Selected Behavioral Objective: Nutrition: To improve blood glucose control I will follow meal plan of Breakfast: 15-30 grams carbohydrate Snack: 15-30 grams carbohydrate Lunch: 30-60 grams carbohydrate Snack: 15-30 grams carbohydrate Dinner: 30-60 grams carbohydrate Bedtime snack: 15-30 grams carbohydrate Education materials given to participant/caregiver and reviewed during today's visit: Serena Materials: What is Gestational Diabetes? Healthy Meals for Diabetes Possible Future Topics: Content areas that were not assessed in first visit: Acute complications Psychosocial/healthy coping Time Spent With Patient: Time in: 759 Time out: 900 Billing: DSMT: 2 units This visit was completed as a virtual group session. Plan for Return: 2-4 week return Participant provided with contact information for Diabetes Care and Mail Agent. All isinger providers within the system are able to see ADA education and outcomes within the participant electronic medical record. Felicita Napoles RDN, NUTRITION SERVICES VIRTUAL Diabetes Care and Mail Agent documented in this encounter Miscellaneous Notes * Pt Handout (on AVS) - Felicita Napoles RDN - 09/03/2024 9:21 AM EDT Images from the original note were not included. [id number] What Is Gestational Diabetes? Gestational diabetes is a type of diabetes that happens during . Unlike type 1 diabetes, gestational diabetes is not caused by having too little insulin. Instead, hormones made by your placenta keep your body from using insulin as it should. This is called insulin resistance. Blood sugar (glucose) then builds up in your blood instead of being absorbed by the cells in your body and used for energy. This can cause high blood sugar and can cause problems for both you and your baby. You can take steps to control your blood sugar. This will help reduce the risks for you and your baby. Managing gestational diabetes You need to control your blood sugar while you are . Your healthcare team will help you make a plan to do this. This plan will include: · Eating the right foods. This is the main way to control your blood sugar. You need to eat a variety of healthy foods each day. To help you plan changes in your diet, you will likely work with a registered dietitian (CHINTAN). This is an expert on food and nutrition. The dietitian may have you take part in a nutrition program to help you reach your goals. · Getting exercise. Your body uses more blood sugar when you exercise. Your healthcare team can help you pick the best kinds of exercise for you. · Checking your blood sugar. You will likely need to check your blood sugar at home. You will do this 2 or more times a day. You will likely check your fasting blood sugar and after meal (postprandial) blood sugar. Your healthcare team will teach you how. They will talk with you about your blood sugar goals. Your blood sugar may also be tested every week or so at a clinic. If your blood sugar stays too high, you may need to have insulin shots during your . Risks to your baby If your blood sugar stays high, your baby is at risk for these problems: · Your baby may grow too large. If your blood sugar stays too high, your baby may grow too large. This is called macrosomia. This means a baby is too big for a safe vaginal . A large baby may get their shoulder stuck behind the pubic bone during . This is called shoulder dystocia. The baby's arms and shoulders could be injured. This may cause permanent arm damage. The baby may also have low oxygen levels (hypoxia) while they are stuck. Hypoxia can lead to cerebral palsy. In rare cases, it can lead to . · Your baby?s organs may not be fully grown at . If you have diabetes, your baby may need to be delivered early. This may be because of problems with the . Or it may be because of risks to you or your baby. If your baby is delivered early, their lungs may not work well. This is called respiratory distress syndrome. Your baby's liver also may not work normally. And your baby may have yellow color in their skin and eyes (jaundice) after . · Your baby?s blood sugar may be low after . If your blood sugar is too high, your baby makesextra insulin. The baby will keep making extra insulin right after . Your baby may need to be treated for low blood sugar. · Your baby could be stillborn. This is very rare. But your baby could before if your blood sugar stays high for too long. Risks to you If you don?t control your blood sugar, you are more likely to have: · High blood pressure. High blood sugar makes you more likely to have high blood pressure during your . This is a danger to your health. It could lead to early delivery for your baby. · Infections. High blood sugar makes you more likely to have bladder, kidney, and vaginal infections. · Trouble breathing. You may feel short of breath. High blood sugar can cause too much fluid around the baby. This is called polyhydramnios. Your abdomen gets big and pushes up on your lungs. · Difficult labor. Your delivery may be harder. And your recovery may take longer. If your blood sugar stays too high, your baby may grow too large. A large baby might cause injury to you during . Or the baby may have to be delivered by section (). This means making a cut (incision) in your abdomen and uterus. A is a common risk of gestational diabetes. Reduce your future risk for type 2 diabetes Women who have gestational diabetes are at higher risk of type 2 diabetes later. You are also at higher risk for gestational diabetes in your next . You can help reduce your risk in these ways: · Lose excess weight. · Be as active as you can. · Eat more fruits and vegetables. · Eat fewer processed foods. · Get regular blood tests to check for diabetes. · Breastfeed your baby. Who is at risk for gestational diabetes? You're more at risk if you: · Are overweight · Have a family history of diabetes · Have had a baby who before · Had gestational diabetes in the past · Are , , , [place] or [place] , or How daily issues affect your health Many things in your daily life impact your health. This can include transportation, money problems,housing, access to food, and childcare. If you can?t get to medical appointments, you may not receive the care you need. When money is tight, it may be difficult to pay for medicines. And living far from a grocery store can make it hard to buy healthy food. If you have concerns in any of these or other areas, talk with your healthcare team. They may know of local resources to assist you. Or they may have a staff person who can help. Last Reviewed Date: 2022 00:00:00 © 6274-2416 [employer]. All rights reserved. This information is not intended as a substitute for professional medical care. Always follow your healthcare professional's instructions. * Pt Handout (on AVS) - Felicita Napoles RDN - 09/03/2024 9:21 AM EDT Images from the original note were not included. [id number] Healthy Meals for Diabetes Figuring out what to eat can be one of the most confusing parts of diabetes. It will help you to have a meal plan. You can ask your healthcare team to help you make a meal plan that fits your needs. Your meal plan tells you when to eat your meals and snacks, what kinds of foods to eat, and how muchof each food to eat. You don?t have to give up all the foods you like but following some guidelines will set you up for success in managing your diabetes. A healthcare provider will help you develop a meal plan that fits your needs. Choose healthy carbohydrates Starches, sugars, and fiber are all types of carbohydrates (carbs). Carbs can get a bad reputation since they affect your blood sugar the most. It is important to remember that your body benefits from the right amount of healthy carbs. Fiber can help lower your cholesterol and triglycerides. Fiber is also healthy for your heart. You should have 20 to 35 grams of total fiber each day. Fiber comes from plants. Fiber-rich foods include: · Whole-grain breads and cereals · Nuts · Brown rice and quinoa · Whole-wheat pasta · Fruits and vegetables · Beans and peas Keep track of the amount of carbs you eat. This can help you keep the right balance of physical activity and medicine. The amount of carbs needed will vary for each person. It depends on many things such as your health, the medicines you take, and how active you are. Your healthcare team will help you figure out the right amount of carbs for you. You may start with around 45 to 60 grams of carbs per meal, depending on your needs. Here are some examples of foods that have about 15 grams of carbs (1 serving of carbs): · 1/2 cup of canned or frozen fruit · A small piece of fresh fruit (4 ounces) · 1 slice of bread · 1/2 cup of oatmeal · 1/3 cup of rice · 4 to 6 crackers · 1/2 Grenadian muffin · 1/2 cup of black beans · 1/4 of a large baked potato (3 ounces) · 2/3 cup of plain fat-free yogurt · 1 cup of soup · 1/2 cup of casserole · 6 chicken nuggets · 6-cite-dsjynr brownie or cake without frosting · 2 small cookies · 1/2 cup of ice cream or sherbet Choose healthy protein foods Proteins play a pryor role in building healthy muscles, bones, skin, and many other parts of your body. Eating protein that's low in fat can help you control your weight. It also helps keep your heart healthy. Low-fat protein foods include: · Fish · Plant proteins, such as lentils, beans, peas, nuts, and soy products like tofu and soymilk · Lean meat with all visible fat removed · Poultry with the skin removed · Low-fat or nonfat milk, cheese, and yogurt Limit unhealthy fats and sugar Saturated and trans fats are unhealthy for your heart. They raise LDL (bad) cholesterol. Fat is also high in calories. To cut down on unhealthy fats and sugar, limit these foods: · Butter or margarine · Palm and palm kernel oils and coconut oil · Cream · Cheese · Cortes · Lunch meats · Ice cream · Sweet bakery goods such as pies, muffins, and donuts · Jams and jellies · Candy bars · Regular sodas How much to eat The amount of food you eat affects your blood sugar. It also affects your weight. Your healthcare team will tell you how much of each type of food you should eat. · Use measuring cups and spoons and a food scale to measure serving sizes. · Learn what a correct serving size looks like on your plate. This will help [facility] and can?t measure your servings. For instance, a serving of meat is about the size of the palmof your hand. · Eat only the number of servings given on your meal plan for each food. Don?t take seconds. · Learn to read food labels. Be sure to look at serving size, total carbohydrates, fiber, calories, sugar, salt, and saturated and trans fats. Look for healthier options such as foods with no added sugar or salt. · Plan ahead for parties. Then you can still have a good time without diving into unhealthy food choices. Bring a healthy dish to [facility]. Choose healthy snacks When it comes to snacks, we often think about foods with added sugar and fats. But there are many other options for healthier snack choices. Here are a few snack ideas to choose from: Snacks with less than 5 grams of carbohydrates · 1 piece of string cheese · 3 celery sticks plus 1 tablespoon of peanut butter · 5 jacome tomatoes plus 1 tablespoon of ranch dressing · 1 hard-boiled egg · 1/4 cup of fresh blueberries · 5 baby carrots · 1 cup of light popcorn · 1/2 cup of sugar-free gelatin · 15 almonds Snacks with about 10 to 20 grams of carbohydrates · 1/3 cup of hummus plus 1 cup of fresh cut non-starchy vegetables (carrots, green peppers, broccoli, celery, or a mix) · 1/2 cup of fresh or canned fruit plus 1/4 cup of cottage cheese · 1/2 cup of tuna salad with 4 crackers · 2 rice cakes and a tablespoon of peanut butter · 1 small apple or orange · 3 cups light popcorn · 1/2 of a turkey sandwich (1 slice of whole-wheat bread, 2 ounces of turkey, and mustard) Portion sizes are important for controlling your blood sugar and staying at a healthy weight. Stockup on healthy snack foods so you always have them on hand. When to eat Your meal plan will likely include breakfast, lunch, dinner, and some snacks. · Try to eat your meals and snacks at about the same times each day. · Eat all your meals and snacks. Skipping a meal or snack can make your blood sugar drop too low. It can also cause you to eat too much at the next meal or snack. Then your blood sugar could get toohigh. Be patient It can be stressful trying to figure out what to eat. But over time, you?ll form new habits around your meal plan and healthy guidelines. Then eating right for your blood sugar will be much easier. Last Reviewed Date: 2023 00:00:00 © 1401-7182 [employer]. All rights reserved. This information is not intended as a substitute for professional medical care. Always follow your healthcare professional's instructions. documented in this encounter Plan of Treatment Scheduled Referrals Name Type Priority Associated Diagnoses Orde r Schedule DIABETES MANAGEMENT EDUCATION (ADA) REFERRAL Referral Within 10 days (routine) Diet controlled gestational diabetes mellitus (GDM) in third trimester Ordered: 08/20/2024 Health Maintenance Due Date Last Done Comments Depression Screening 2003 Pneumococcal Vaccine: Pediatrics (0 to 5 Years) and At-Risk Patients (6 to 18 Years and 19+ Years) (1 of 2 - PCV) 2010 Lipid Panel 2011 COVID-19 Vaccine ( season) 2024 Influenza Vaccine (FLU shot) (Season [...] of state, incidental Encounter for anatomic survey Diet controlled gestational diabetes mellitus (GDM) in third trimester- Primary Late care Insufficient care Encounter for supervision of other normal , second trimester Abnormal glucose tolerance in mother complicating Abnormal maternal glucose tolerance, complicating , childbirth, or the puerperium, unspecified as to episode of care documented in this encounter Care Teams Fashion Consultant Relationship Specialty Start Date End Date Carri Goyal DO [address] [facility] [address] [place] [address] PCP - General Family Medicine 01/05/21 documented as of this encounter
--- OUTSIDE RECORDS SUMMARY | 2024-09-18 10:12 | External Medical Summary | Summary of Care ---
Author Name Unknown Organization [facility] Address [address] [facility] [place] [address] Phone [phone] Care Team Providers Care Deck Builder Name Role Phone Carri Goyal [place] Primary Care Provider [phone] Reason for Referral * Evaluate & Treat - Unlimited Visits (Within 3 days (urgent)) - Pending Review Specialty Diagnoses / Procedures Referred By Anthony lora Referred To Contact Cushion Former Diagnoses Diet controlled gestational diabetes mellitus (GDM) in third trimester Rachel Blanco CRNP [address] [place] [address] Phone: tel: fax: Referral ID Status Reason Start Date Expiration Date Visits Requested Visits Authorized [id number] Pending Review Specialty Services Required 08/26/2024 1 1 Question Answer Referral Priority Within 3 days (urgent) Where should this appointment be scheduled? [facility] Program Type Chronic Disease Management Chronic Disease Management Continuous Glucose Monitoring for Diabetes Alarm Settings Standard per protocol Reason for Visit * Reason Comments Consultation Gestational diabetes Encounter Details Date Type Department Care Team ([facility] Contact Info) Description 08/26/2024 8:10 AM EDT Telemedicine Separator Inserter [facility] [address] [facility] [place] [address] Rachel Blanco CRNP [address] [place] [address] Supervision of high risk in third trimester*; 35 weeks gestation of ; Diet controlled gestational diabetes mellitus (GDM) in third trimester; Late care; Tobacco smoking affecting in third trimester Allergies Active Allergy Reactions Criticality Noted Date Comments Amoxicillin Renal complications 06/18/2024 documented as of this encounter (statuses as of 08/26/2024) Medications Triamcinolone Acetonide 0.1 % External Ointment [...] breakfast, lunch, and dinner) 200 Each 6 Active Additional Information Patient not taking.Reported on 08/26/2024 OneTouch Verio In Vitro Strip (Glucose Blood)Indication s:Diet controlled gestational diabetes mellitus (GDM) in third trimester Monitor blood sugar four times daily (once fasting & 1 hour after breakfast, lunch, and dinner). 150 Strip 6 Active OneTouch Verio w/Device KitIndications:D iet controlled gestational diabetes mellitus (GDM) in third trimester Please monitor blood sugar four times daily (once fasting & 1 hour after breakfast, lunch, and dinner). 1 Kit Active OneTouch Delica Lancets 33GIndications:D iet controlled gestational diabetes mellitus (GDM) in third trimester Monitor blood sugar four times daily (once fasting & 1 hour after breakfast, lunch, and dinner). 200 Each 6 Active documented as of this encounter (statuses as of 08/26/2024) Active Problems Problem Noted Date Diagnosed Date [...] Recommend nutrition consult with RDN (Registered Dietitian Doweling Machine Operator). Lifestyle changes are also indicated including optimizing [...] as of this encounter (statuses as of 08/26/2024) Resolved Problems Problem Noted Date Diagnosed Date Resolved Date Routine child health exam 01/06/2003 PROPHY. VACCINATION AGAINST TETANUS-DIPHTHERIA (TD) 01/06/2003 08/04/2009 Other acne 01/06/2003 08/04/2009 documented as of this encounter (statuses as of 08/26/2024) Immunizations Name Administration Dates Next Due HPV [...] Progress Notes * Rachel Blanco CRNP - 08/26/2024 8:58 AM EDT MATERNAL MEDICINE CONSULT Ev Julio 08/26/24 REFERRING PROVIDER: Gabrielle HANSON Patient location: HOME. I was in a hospital or clinic location. After connecting through televideo,patient was verified with two unique identifiers. Patient (or authorized legal community service representative) was then informed that this was a Telemedicine visit and being conducted confidentially over secure lines. Methods to assure confidentiality were taken. Patient acknowledged consent and understanding of pr ivacy and security of the Telemedicine visit. The patient agreed to participate. Ev Julio is a 34 year old with intrauterine at 35w6d (Estimated Date of Delivery: 09/24/24 by 26w5d ultrasound) who presents today for an MFM consult due to gestational diabetes, late care, and tobacco use. HPI/CURRENT : pre- BMI=normal (63.5 kg (140 lb); 5' 4.4"); FOB #2 (not disclosed); complicated by above. OB [facility] Problems (from 06/18/24 to present) Problem Noted Diagnosed Resolved Tobacco smoking complicating Overview Addendum 08/26/2024 8:56 AM by Rachel Blanco CRNP Currently smoking 5-10 cigarettes/day which is a decrease from 1 pack per day prior to the . Encouraged smoking cessation. GDM (gestational diabetes mellitus) Overview Addendum 08/26/2024 8:56 AM by Rachel Blanco CRNP Diagnosed at 35 weeks Nutrition referral ordered; [...] blood sugars each week for MFM review Late care Overview Signed 06/23/2024 3:20 PM by Gabrielle Bowling CRNP New completed at 26w5d, dating based off of u/s at that time. I have reviewed this patient's previous OB ultrasound reports, pertinent labwork and testing provided by her referring OB provider. Current Outpatient Medications Medication Sig Dispense Refill Mupirocin 2 % External Ointment (Bactroban) Apply to feet 2-3 times daily (Patient not taking: Reported on 07/17/2024) 22 g 1 OneTouch Delica Lancets 30G Use to test blood sugars 4 times daily (fasting, 1 hour after breakfast, lunch, and dinner) (Patient not taking: Reported on 08/26/2024) 200 Each 6 OneTouch Delica Lancets 33G Monitor blood sugar four times daily (once fasting & 1 hour after breakfast, lunch, and dinner). 200 Each 6 OneTouch Verio Flex System w/Device Kit Use to test blood sugars 4 times daily (fasting, 1 hour after breakfast, lunch, and dinner) (Patient not taking: Reported on 08/26/2024) 1 Kit 0 OneTouch Verio In Vitro Strip (Glucose Blood) Use to test blood sugars 4 times daily (fasting, 1 hour after breakfast, lunch, and dinner) (Patient not taking: Reported on 08/26/2024) 125 Strip 6 OneTouch Verio In Vitro Strip (Glucose Blood) Monitor blood sugar four times daily (once fasting & 1 hour after breakfast, lunch, and dinner). 150 Strip 6 OneTouch Verio w/Device Kit Please monitor blood sugar four times daily (once fasting & 1 hour after breakfast, lunch, and dinner). 1 Kit 0 predniSONE 10 MG Oral Tablet (Deltasone) Take 6 tabs daily for 3 days; then 5 tabs daily for 3 days; then 4 tabs daily for 3 days; then 3 tabs daily for 3 days; then 2 tabs daily for 3 days; and then1 tab daily for 3 days (Patient not taking: Reported on 07/17/2024) 63 Tablet 0 Forte Oral Tablet Take by mouth. Triamcinolone Acetonide 0.1 % External Ointment (Aristocort) Apply 2x daily (or more if itchy instead of scratching) to rash over face/trunk/arms/legs (Patient not taking: Reported on 07/17/2024) 454 g 0 No current facility-administered medications for this visit. Review of patient's allergies indicates: Allergen Reactions Amoxicillin Renal complications OB History Para Term AB Living 2 1 1 0 0 1 SAB IAB Ectopic Multiple Live Births 0 0 0 0 1 # Outcome Date GA Lbr Rodo/2nd Weight Sex Type Anes PTL Lv 2 Current 1 Term 03/14/17 41w1d 3.204 kg (7 lb 1 oz) F Vag-Spont N SHAY Comments: FOB#1; denies complications Obstetric Comments 2024 FOB#2 not disclosed Past Medical History: Diagnosis Date GDM (gestational diabetes mellitus) 2024 Varicella without complication 05/21/1995 Past Surgical History: Procedure Laterality Date DENTAL SURGERY PROCEDURE NEC Family History Problem Relation Name Age of Onset No Known Problems Mother Cancer Father No Known Problems Brother No Known Problems Brother No Known Problems Daughter Social History Tobacco Use Smoking status: Every Day Current packs/day: 0.50 Average packs/day: 0.5 packs/day for 1 year (0.5 ttl pk-yrs) Types: Cigarettes Smokeless tobacco: Never Vaping Use Vaping status: Never Used Substance Use Topics Alcohol use: No Comment: denies in Drug use: No REVIEW OF SYSTEMS: headaches: no nausea/vomiting: denies reports movement: yes abdominal pain/tenderness/cramping/contractions: no vaginal bleeding: no vaginal leaking of fluid: no all other systems negative PHYSICAL EXAM: LMP 11/28/2023 (Approximate) General: Well appearing, no acute distress Psych: Alert to time, place, and person and Pleasant DISCUSSION/RECOMMENDATIONS: Problem List Items Addressed This Visit OB Aleksye Garza Supervision of high risk in third trimester Late care Encourage consistent care to promote maternal and well-being. GDM (gestational diabetes mellitus) CONSIDERATIONS: Reviewed etiology and risks associated with gestational diabetes mellitus (GDM), including risks topregnancy, fetus, and maternal progression to Type 2 DM. Instructed on proper use of glucometer; supplies ordered, if indicated. Advised that life-long screening for diabetes is recommended every 1-3 years. RECOMMENDATIONS: Recommend monitoring blood sugars with daily fasting blood sugar (maintained at less than 95) and 1hour postprandial measurements (maintained at less than 140). Medications should be adjusted to maintain these target values. Report levels to MFM (Maternal- Medicine) weekly. Recommend nutrition consult with RDN (Registered Dietitian Doweling Machine Operator). Lifestyle changes are also indicated including optimizing gestational weight gain and physical activity of 30 minutes per day, if not otherwise contraindicated in . Insulin is preferred if medications are indicated to optimize euglycemia. Metformin (preferred overglyburide) may also be used in some circumstances. [...] admission (or 6-8 weeks if not completed). Relevant Medications OneTouch Verio In Vitro Strip (Glucose Blood) OneTouch Verio w/Device Kit OneTouch Delica Lancets 33G Other Relevant Orders REMOTE PATIENT MONITORING REFERRAL Tobacco smoking complicating Strongly advised patient to stop using tobacco. [...] Medicine ultrasound for growth at 28-30 weeks. The most successful method to quit smoking is if those around you do not smoke as well. Follow up ultrasound with Maternal Medicine is scheduled on 08/29/[address] Caceres for anatomy scan secondary to gestational diabetes, late care, and tobacco use. Patient is aware ofupcoming MFM appointment. VALENTIN Sullivan 08/26/2024 9:02 AM documented in this encounter Miscellaneous Notes * Pt Handout (on AVS) - Rachel Blanco CRNP - 08/26/2024 8:57 AM EDT Images from the original note were not included. 78001 Gestational Diabetes: Exercise Exercise can help you keep your blood sugar in a normal range. That?s because your body uses more sugar when you exercise. Diabetes in can often be managed with careful nutrition and exercise alone. Then you may not need medicine to control your blood sugar. Exercise regularly Your health care provider may want you to exercise each day. The best time depends on when your blood sugar is highest. Exercising may also help ease some common symptoms of . These include bloating, constipation, urinary incontinence, and backaches. Ask about exercise at your first care visit. Your provider will work with you to make an exercise plan that fits your needs. Here are some tips: · Aim to exercise for 30 to 60 minutes a day. Do this at moderate intensity. This means you're moving enough to raise your heart rate and start sweating. But you can still talk normally. · Try breaking up daily exercise into 2 or 3 sessions. For example, take a 15- minute walk after each meal. · Exercise with a friend or your partner. This may help you stick to your exercise plan. · Go at a comfortable pace. Don?t tire yourself out. Exercise safely Ask your provider about exercise safety for you and your baby. Walking, swimming, and low-impact orwater aerobics are often the safest things to do. Other safety tips include: · Don't do activities where you jump, turn, twist, or stop and start quickly. · Don't lift heavy weights. · Don't exercise on your back after the first trimester. This can put too much pressure on an important vein. It can limit blood flow to the baby. If you do yoga or Pilates, find a class designed for . · Use a sports bra to support your breasts. You may also want to use a belly support belt later inpregnancy. · Don't get overheated. Don't do hot yoga or hot Pilates. Don't raise your heart rate to a level that makes it hard to talk. · Drink plenty of water. · If you use insulin, carry a carbohydrate snack with you. · If you walk or do low-impact aerobics, wear sturdy shoes. · If you haven?t eaten in 2 or more hours, have a light snack before exercising. · Don't do contact sports that put you at risk of being hit in the belly. These include boxing, ice hockey, soccer, and basketball. · Don't go skydiving or scuba diving. · Don't do things that may cause a serious fall. These include horseback riding, gymnastics, and off-road cycling. · Use a stationary bike. It's a safer choice than a standard bike. It will stop you from getting off balance with your growing belly. When it's not safe to exercise It's not advised to exercise when if you have any of these health conditions: · Some types of heart and lung diseases · with twins or more, and at risk for labor · labor or if your water has broken (ruptured membranes) · Placenta previa later than 26 weeks of · Preeclampsia or high blood pressure due to · Severe anemia · Cervical insufficiency or cerclage When to contact your doctor Call your provider right away or go to the ER if: · You have belly pain. · You have vaginal bleeding. · You feel dizzy or faint. · You have a headache. · You notice decreased movement. · You have contractions. · You have muscle weakness. · You have calf pain or swelling. · There's fluid leaking from the vagina. Call 911 Call 911 if: · You have chest pain. · You have trouble breathing. Last Reviewed Date: 2024 00:00:00 © [employer]. All rights reserved. This information is not intended as a substitute for professional medical care. Always follow your healthcare professional's instructions. * Pt Handout (on AVS) - Rachel Blanco CRNP - 08/26/2024 8:57 AM EDT Images from the original note were not included. [id number] Healthy Meals for Diabetes Figuring out what [...] · 4 to 6 crackers · 1/2 Croatian muffin · 1/2 cup of black beans · 1/4 of a large baked potato (3 ounces) · 2/3 cup of plain fat-free yogurt · 1 cup of soup · 1/2 cup of casserole · 6 chicken nuggets · [id number] brownie or cake without frosting · 2 [...] plate. This will help when you're away fromhome and can?t measure your servings. For instance, [...] food choices. Bring a healthy dish to [employer]. Choose healthy snacks When it comes to [...] much easier. Last Reviewed Date: 2023 00:00:00 [employer]. All rights reserved. This information is not intended as a substitute for professional medical care. Always follow your healthcare professional's instructions. * Pt Handout (on AVS) - Rachel Blanco CRNP - 08/26/2024 8:57 AM EDT Images from the original note were not included. [id number] If You Need Extra Insulin During During , your body may not be able to make enough insulin to control your blood sugar. If this happens, you may need extra insulin. This will help control your blood sugar. In some cases, anoral antidiabetic medicine may be used. An example of this is glyburide. But insulin is used most often. Insulin is a natural substance. It is not addictive. It does not harm your baby. It does not cross the placenta. That means it does not affect your baby the way taking a pill would. If you did not have diabetes before , you will likely stop taking insulin after your baby is born. Learning to use insulin Your healthcare provider will prescribe your insulin. They will teach you how to give yourself a shot. With practice, you?ll get comfortable doing it. You will need to inject it 1 or more times a day. Insulin is injected into fatty tissue. The best site for a shot of insulin is in your belly area. But you can also do the shot in your upper arm or thigh. Talk with your healthcare provider about where to give the shot. Here are some steps to follow: · Choose an injection site. · Clean it with alcohol if the skin is dirty. · Pinch a fold of skin. Insert the needle at a steep angle. The best angle will depend on your body type, the length of the needle, and where you put the shot. Your healthcare provider will help youfind the best angle. · Keeping the skin pinched, push the plunger down. This injects the insulin. · Release the pinched skin. · Remove the needle from your skin. · If you see blood or insulin leaking from your skin, press firmly on the site for 5 to 8 seconds. · Don?t rub your skin in the area. [place] and syringes should be used only 1 time. After using, throw them away in a puncture-proof container. This is known as a sharps container. Don?t throw needles in your household trash. Talk to your healthcare provider if you have any questions or concerns about taking insulin. The best site for injecting insulin is your abdomen. But you can also inject into an upper arm or thigh. Talk with your health care provider about where to give yourself a shot. Finding the right dose for you Your healthcare provider will work with you to find the right dose of insulin for you. It may take time. This is because you need to balance your insulin with your food and exercise. And your body needs more insulin as your baby grows. You must check your blood sugar several times a day. This is to be sure your insulin is working. Ifyour blood sugar is too high or too low, your healthcare provider will adjust your dose. Low blood sugar Taking insulin puts you at risk of low blood sugar. Symptoms of low blood sugar include: · Shakiness · Dizziness · Weakness · Confusion If you feel any of these symptoms, check your blood sugar right away. Always treat low blood sugar quickly. To do this, eat 15 grams of fast-acting sugar, such as: · 3 glucose tablets · 5 to 6 pieces of hard candy · 1 to 2 tablespoons of honey or sugar · ½ cup fruit juice or regular, nondiet soda · 1 cup fat-free milk Then check your blood sugar again in 15 minutes. If your blood sugar is still low, eat another 15 grams of sugar. If your blood sugar does not return to the target range in 30 minutes, call your healthcare provider. Last Reviewed Date: 2022 00:00:00 © 2136-0811 [employer]. All rights reserved. This information is not intended as a substitute for professional medical care. Always follow your healthcare professional's instructions. * Pt Handout (on AVS) - Rachel Blanco CRNP - 08/26/2024 8:57 AM EDT Images from the original note were not included. 77447 Understanding Carbohydrates Just like a car needs the right type of fuel to run, you need the right kind of food to function. To keep your energy level up, your body needs food that has carbohydrates (carbs). But carbs raise blood sugar levels higher and faster than other kinds of food. Your dietitian will work with you to figure out the amount of carbs you need. Carbs come in 3 types: starches, sugars, and fiber. Starches Starches are found in grains, some vegetables, and beans. Grain products include bread, pasta, cereal, and tortillas. Starchy vegetables include potatoes, peas, corn, rosas beans, yams, and squash. Kidney beans, savage beans, black beans, garbanzo beans, and lentils also have starches. Sugars Sugars are found naturally in many foods. Or they can be added. Foods that contain natural sugar include fruits and fruit juices, dairy products, honey, and molasses. Added sugars are found in most desserts, processed foods, candy, regular soda, and fruit drinks. These are very helpful to treat lowblood sugar (hypoglycemia). They give you sugar quickly. Try to keep at least 15 to 20 grams of these simple sugars with you at all times. Eat or drink these if you start to have symptoms of low blood sugar. Fiber Fiber comes from plant foods. Your body can't digest most fiber. Instead of raising blood sugar levels like other carbs, fiber stops blood sugar from rising too quickly. Fiber is found in fruits, vegetables, whole grains, beans, peas, and many nuts. Understanding how to count your carbs Keep track of the amount of carbs you eat. This can help you keep the right balance of carbs, physical activity, and medicine. The amount of carbs you need will be different from what other people need. How much you need depends on many things. These include your health, the medicines you take, andhow active you are. Your healthcare team will help you figure out the right amount of carbs for you. You may start with 45 to 60 grams of carbs per meal, depending on your case. Carb counting is a system that helps you keep track of the carbohydrates you eat at each meal. Carbs come from many foods. These include grains, starchy vegetables, fruit, milk, beans, and snackfoods. You can either count carbohydrate grams or carbohydrate servings. When you count carbohydrate servings, 1 carbohydrate serving = 15 grams of carbohydrates. Here are some examples of foods that have about 15 grams of carbs (1 serving of carbohydrates): · 1/2 cup of canned or frozen fruit · A small piece of fresh fruit (4 ounces) · 1 slice of bread · 1/2 cup of oatmeal · 1/3 cup of rice · 4 to 6 crackers · 1/2 Croatian muffin · 1/2 cup of black beans · 1/4 of a large baked potato (3 ounces) · 2/3 cup of plain fat-free yogurt · 1 cup of soup · 1/2 cup of casserole · 6 chicken nuggets · 4-jcfg-dtyovd brownie or cake without frosting · 2 small cookies · 1/2 cup of ice cream or sherbet Carb counting is easier when food labels are available. Look at the label to see how many grams of total carbs per serving the food contains. Then you can figure out how much you should eat. If your food doesn't have a nutrition label, you should be able to get an idea of how many carbs there are per serving by using a book or website. Two very important lines to look at on the label are the serving size and the total carbohydrate amount per serving. Here are some tips for using food labels to count your carbs: · Check the serving size. The information on the label is based on that serving size. If you eat more than the listed serving size, you may have to double or triple the other information on the label. · Check the total grams of carbs. Total carbohydrate from the label includes sugar, starch, and fiber. Be sure to use the total carbohydrate number (minus the fiber) and not sugar alone. · Know how many grams of carbs you can have. Be familiar with the matching portion sizes. · Compare labels. Compare the labels of different products. Look at serving sizes and total carbs to find the products that work best for you. · Don't forget protein and fat. With the focus on carb counting, it might be easy to forget protein and fat in your meals. Don't forget to include sources of protein and healthy fat to balance your meals. Also watch how much salt (sodium) you eat. This is especially true if you have high blood pressure. If you have diabetes, limit the amount of sodium to less than 2,300 mg a day. It?s also important to be consistent with the amount of carbs and time you eat when taking a fixed dose of diabetes medicine. Work with your healthcare provider or dietitian if you need more help. They can help you keep track of your carbs. They can also help you figure out how many grams of carbs you should have. Last Reviewed Date: 2023 00:00:00 © [employer]. All rights reserved. This information is not intended as a substitute for professional medical care. Always follow your healthcare professional's instructions. * Pt Handout (on AVS) - Rachel Blanco CRNP - 08/26/2024 8:57 AM EDT Images from the original note were not included. [id number] What Is Gestational Diabetes? Gestational diabetes is [...] will likely work with a registered dietitian (RD). This is an expert on food and [...] help. Last Reviewed Date: 2022 00:00:00 © 7476-5979 [employer]. All rights reserved. This information is not intended as a substitute for professional medical care. Always follow your healthcare professional's instructions. * Pt Handout (on AVS) - Rachel Blanco CRNP - 08/26/2024 8:57 AM EDT Images from the original note were not included. [address] Gestational Diabetes: After Your blood sugar will most likely return to normal after delivery. But gestational diabetes is a warning sign that you are at risk of getting diabetes later in life. You?re also more likely to have gestational diabetes with your next . But you can take steps to reduce these risks. Taking care of yourself Even if your blood sugar goes back to normal, you still need to take care of yourself. This will help prevent diabetes later in life. You'll need to: · Aim for a healthy weight. Eating food that is low in fat and sugar can help you control your weight. If you?re overweight, your risk of getting diabetes in 10 to 15 years more than doubles. Aimingfor a healthy weight also reduces your risk of gestational diabetes in your next . · Get regular exercise. Exercise helps lower your blood sugar. It can also help you control your weight. Try to work up to at least 150 minutes of moderate exercise every week. This can be 30 minutes, 5 days a week. · Have your blood sugar checked. Make an appointment to have your blood sugar checked 4 to 12 weeks after delivery. If your blood sugar is still high, you may have type 2 diabetes. Your healthcare provider will tell you more about how to manage diabetes long-term. · Have regular diabetes screenings. Have blood tests every year, or as often as your healthcare provider advises. Breastmilk is the best food for your baby. Giving only breastmilk is advised for at least your baby's first 6 months. may also help lower your blood sugar. Based on research studies, itmay delay your risk of developing type 2 diabetes. Your healthcare provider can show you how to breastfeed. Be sure to eat healthy foods and drink extra water while you?re . You may find exercise easier right after . This is when your breasts may feel surgeon chief. Planning a future A pre- evaluation is recommended for people who have a history of gestational diabetes. Your blood sugar needs to be back to normal before you get again. Have your blood sugar checked before you plan your next . And remember that it?s possible to get again soon after you give . Talk with your healthcare provider about the best method of control for you and your partner. Last Reviewed Date: 2024 00:00:00 © [employer]. All rights reserved. This information is not intended as a substitute for professional medical care. Always follow your healthcare professional's instructions. * Assessment & Plan Note - Rachel Blanco CRNP - 08/26/2024 8:56 AM EDTAssociated Problem(s): Tobacco smoking complicating Strongly advised patient to stop using tobacco. [...] is if those around you do not smokeas well. * Assessment & Plan Note - Rachel Blanco CRNP - 08/26/2024 8:56 AM EDTAssociated Problem(s): GDM (gestational diabetes mellitus) CONSIDERATIONS: Reviewed etiology and risks associated with gestational diabetes mellitus (GDM), including risks topregnancy, fetus, and maternal progression to Type 2 DM. Instructed on proper use of glucometer; supplies ordered, if indicated. Advised that life-long screening for diabetes is recommended every 1-3 years. RECOMMENDATIONS: Recommend monitoring blood sugars with daily fasting blood sugar (maintained at less than 95) and 1hour postprandial measurements (maintained at less than 140). Medications should be adjusted to maintain these target values. Report levels to MFM (Maternal- Medicine) weekly. Recommend nutrition consult with RDN (Registered Dietitian Doweling Machine Operator). Lifestyle changes are also indicated including optimizing gestational weight gain and physical activity of 30 minutes per day, if not otherwise contraindicated in . Insulin is preferred if medications are indicated to optimize euglycemia. Metformin (preferred overglyburide) may also be used in some circumstances. [...] admission (or 6-8 weeks if not completed). * Assessment & Plan Note - Rachel Blanco CRNP - 08/26/2024 8:42 AM EDTAssociated Problem(s): Late care Encourage consistent care to promote maternal and well-being. documented in this encounter Plan of Treatment Upcoming Encounters Date Type Department Care Team (Late st Contact Info) Description 08/29/2024 10:45 AM EDT Office Visit Separator Inserter OB Maternal Medicine [facility] Eldon Wynne [address] [place] [address] [address] [place] [address] Sabine Caceres DO [address] [place] [address] 08/29/2024 10:45 AM EDT Imaging Maternal Medicine [facility] Eldon Wynne [address] [place] [address] [address] [place] [address] 09/02/2024 1:30 PM EDT Office [facility] [address] [place] [address] McHail, Gabrielle L, VOLUMETRIC WEIGHER [address] [place] [address] 09/03/2024 8:00 AM EDT Telemedicine Virtual, Nutrition Services [address] [facility] [address] Yasminewilbur Felicita Laurel, RDN [address] [place] [address] Scheduled Referrals Name Type Priority Associated Diagnoses Orde r Schedule REMOTE PATIENT MONITORING REFERRAL Referral Within 3 days (urgent) Diet controlled gestational diabetes mellitus (GDM) in third trimester Ordered: 08/26/2024 Health Maintenance Due Date Last Done Comments [...] care Tobacco smoking affecting in third trimester documented in this encounter Care Teams Deck Builder Relationship Specialty Start Date End Date Carri Goyal DO [address] [address] PCP - General Family Medicine 01/05/21 documented as of this encounter
--- OUTSIDE RECORDS SUMMARY | 2024-09-18 10:12 | External Medical Summary | Summary of Care ---
Author Name Unknown Organization [facility] Address [address] [place] [address] Phone [phone] Care Team Providers Care Biochemical Engineer Name Role Phone Sinaneli Carrijamal Barragan DO Primary Care Provider [phone]- [phone] Encounter Details Date Type Department Care Team (Late st Contact Info) Description 08/29/2024 10:45 AM EDT Office Visit Fruit Peeler OB Maternal Medicine [facility] Eldon Wynne [address] [place] [address] [address] [place], [place] [id number] Sabine Caceres, DO [address] [place], [place] [id number] Gestational diabetes mellitus (GDM) in third trimester, gestational diabetes method of control unspecified*; 36 weeks gestation of ; Encounter for anatomic survey Allergies Active Allergy Reactions Criticality Noted Date [...] feet 2-3 times daily 22 g 1 12/02/202 1 Active Additional Information Patient not taking.Reported [...] week for MFM review Assessment & Plan (08/29/2024 2:08 PM EDT): 1'GTT and 3'GTT results reviewed. Working with TYRELLHugh Carreno reports thus far her sugars have [...] Recommend nutrition consult with RDN (Registered Dietitian Manual Winder). Lifestyle changes are also indicated including optimizing [...] as of this encounter Progress Notes * Sabine Caceres DO - 08/29/2024 2:08 PM EDT MATERNAL MEDICINE VISIT Ev Julio presented today at 36w2d for an ultrasound and follow-up of her high risk . She was seen for the following indications: Problem List Items Addressed This Visit GDM (gestational diabetes mellitus) - Primary 1'GTT and 3'GTT results reviewed. Working with Ev reports thus far her sugars have been well controlled with diet alone. Other Visit Diagnoses 36 weeks gestation of Encounter for anatomic survey We reviewed today's ultrasound findings. Normal growth with no evidence of structural abnormalities, however exam suboptimal dueto advanced gestational age and position. (For full details, please refer to ultrasound report provided separately). Ms. Julio's questions were answered to her satisfaction. She was advised to contact our office or her OB provider for any additional questions regarding her . RECOMMENDATIONS: Follow up with MFM for ultrasound as clinically indicated. Thank you for allowing us to participate in the care of this patient. Please call with any questions. Sabine Caceres DO 08/29/2024 2:08 PM documented in this encounter Miscellaneous Notes * Assessment & Plan Note - Sabine Caceres DO - 08/29/2024 11:50 AM EDT Associated Problem(s): GDM (gestational diabetes mellitus) 1'GTT and 3'GTT results reviewed. Working with ADAPT. Carreno reports thus far her sugars have been well controlled with diet alone. documented in this encounter Plan of Treatment Upcoming Encounters Date Type Department Care Team (Late st Contact Info) Description 09/02/2024 1:30 PM EDT Office Visit Gynecology/Obstetrics [facility] Garza [address] [place] [address] Gabrielle Bowling CRNP [address] [place] [address] 09/03/2024 8:00 AM EDT Telemedicine Virtual, Nutrition Services [facility] [address] [place] [address] [place] [address] Felicita Napoles, RDN [address] Saniya Mccray, [place] [address] Health Maintenance Due Date Last Done Comments [...] of state, incidental Encounter for anatomic survey documented in this encounter Care Teams Biochemical Engineer Relationship Specialty Start Date End Date Carri Goyal DO [address] [address] PCP - General Family Medicine 01/05/21 documented as of this encounter
--- OUTSIDE RECORDS SUMMARY | 2024-09-18 10:12 | External Medical Summary | Summary of Care ---
Author Name Unknown Organization [facility] Address [address] [facility] [place] [address] Phone [phone] Care Team Providers Care Quality Specialist Name Role Phone Carri Goyal DO Primary Care Provider [phone]- [phone] Encounter Details Date Type Department Care Team (Late st Contact Info) Description 09/03/2024 Telephone Gynecology/Obstetrics [facility] [address] [place] [address] Gabrielle Bowling CRNP [address] [place] [address] Allergies Active Allergy Reactions Criticality Noted Date [...] 1 Capsule before bedtime. 5 Active Nystatin 232172 UNIT/ML Mouth/Throat Suspension Take 5 mL by [...] blood sugars each week for MFM review [id number] via zeyad and messaging. Overall stable (< [...] Recommend nutrition consult with RDN (Registered Dietitian Senior Accounting Specialist). Lifestyle changes are also indicated including [...] 09/04/2024) Immunizations Name Administration Dates Next Due HPV [...] encounter Miscellaneous Notes * Telephone Encounter - Akosua Martin RN [...] filedocumented as of this encounter Care Teams Quality Specialist Relationship Specialty Start Date End Date Carri Goyal DO [address] [facility] 2 [place] [address] PCP - General Family Medicine 01/05/21 documented as of this encounter
--- OUTSIDE RECORDS SUMMARY | 2024-09-18 10:12 | External Medical Summary | Summary of Care ---
Author Name Unknown Organization [facility] Address [address] [facility] [place] [address] Phone [phone] Care Team Providers Care Sole Trimmer Name Role Phone Jay Jay Carrijamal Barragan DO Primary Care Provider +1- [phone] Encounter Details Date Type Department Care Team (Late st Contact Info) Description 08/23/2024 Result Scan Unspecified Department <No scans attached> Allergies Active Allergy Reactions Criticality Noted Date Comments Amoxicillin Renal complications 06/18/2024 documented as of this encounter (statuses as of 08/25/2024) Medications Triamcinolone Acetonide 0.1 % External Ointment [...] lunch, and dinner) 1 Kit 5 Active OneTouch Verio In Vitro Strip (Glucose Blood)Indication s:Diet controlled gestational diabetes mellitus (GDM) in third trimester Use to test blood sugars 4 times daily (fasting, 1 hour after breakfast, lunch, and dinner) 125 Strip 6 5 Active OneTouch Delica Lancets 30GIndications:D iet controlled gestational diabetes mellitus (GDM) in third trimester Use to test blood sugars 4 times daily (fasting, 1 hour after breakfast, lunch, and dinner) 200 Each 6 5 Active documented as of this encounter (statuses as of 08/25/2024) Active Problems Problem Noted Date Diagnosed Date GDM (gestational diabetes mellitus) 08/20/2024 Overview (08/20/2024): Completed 3hr GTT at 35w. Abnormal glucose tolerance in mother complicatin g 08/06/2024 Overview (08/06/2024): Failed glucola at 33w. 3 hour ordered Late care 06/23/2024 Overview (06/23/2024): New completed at 26w5d, dating based off of u/s at that time. Encounter for supervision of other normal , second trimester 06/23/2024 Esophageal reflux 06/21/2010 Allergic rhinitis 06/21/2010 Estimated Date of Delivery Comme nts Yes 09/24/2024 Based on Ultraso und documented as of this encounter (statuses as of 08/25/2024) Resolved Problems Problem Noted Date Diagnosed Date Resolved Date Routine child health exam 01/06/2003 PROPHY. VACCINATION AGAINST TETANUS-DIPHTHERIA (TD) 01/06/2003 08/04/2009 Other acne 01/06/2003 08/04/2009 documented as of this encounter (statuses as of 08/25/2024) Immunizations Name Administration Dates Next Due HPV [...] drink = 0.6 oz pur e alcohol) Estimated Date of Delivery Comme nts Yes [...] Description 08/29/2024 10:45 AM EDT Office Visit Sales Representative Church Furniture OB Maternal Medicine [facility] Eldon Wynne [address] [place] [address] Dr [address] [facility] [address] Sabine Caceres, DO [address] [place] [address] 08/29/2024 10:45 AM EDT Imaging Maternal Medicine [facility] Eldon Wynne [address] [place] [address] [address] [place] [address] 09/02/2024 1:30 PM EDT Office [facility] [address] [place] [address] Gabrielle Bowling CRNP [address] [place] [address] 09/03/2024 8:00 AM EDT Telemedicine Virtual, Nutrition Services [address] [facility] [place] [address] Felicita Napoles, RDN [address] [place] [address] Health Maintenance Due Date Last Done Comments [...] Procedure Name Priority Date/Time Associated Diagnosis Comments RADIOLOGY SCANNED RESULT 08/23/2024 documented in this encounter Results * RADIOLOGY SCANNED RESULT (08/23/2024) 08/23/2024 us No Physician Data Unknown DIAGNOSTIC RADIOLOGY S ERVICES Final Result documented in this encounter Care Teams Sole Trimmer Relationship Specialty Start Date End Date Carri Goyal DO [address] [facility] 2 [place] [address] PCP - General Family Medicine 01/05/21 documented as of this encounter
[2024-09-18] MEDS ORDERED: LIDOCAINE 1% LOCAL 20 ML VIAL INFIL PRN (10:18)
[2024-09-18] MEDS ORDERED: OXYTOCIN 30 UNITS/NSS 30 UNITS/500 ML BAG IV PRN ×2 (10:18→23:29)
[2024-09-18] MEDS: miSOPROStoL 50 MCG TAB PO STA (10:47)
[2024-09-18 11:05] LABS: Hematocrit (blood only) 36.6 % (37.0-47.0); Hemoglobin 11.6 g/dl (12.0-16.0); Mean Corpuscular Hgb Conc 31.7 g/dL (32.0-36.0); Mean Corpuscular Volume 88.2 fL (80.0-100.0); Mean Platelet Volume 10.3 fL (9.4-12.4); Platelet Count 270 K/uL (130-400); RDW Coefficient of Variation 13.6 % (11.5-14.5); RDW Standard Deviation 43.1 fL (36.4-46.3); Red Blood Count 4.15 M/uL (4.20-5.40); White Blood Count 12.08 K/ul (4.8-10.8)
--- NOTE | 2024-09-18 11:14 | History & Physical Report ---
Date of Service September 18, 2024 Assessment & Plan Admission and Anticipated Discharge Date Admission Date: September 18, 2024 History of Present Illness Primary Care Provider: NO PCP Allergies Allergy/AdvReac Type Severity Reaction Status Date / Time amoxicillin [From Augmentin] AdvReac Intermediate hematuria Verified 09/18/24 09:27 clavulanic acid AdvReac Intermediate hematuria Verified 09/18/24 09:27 [From Augmentin] tramadol AdvReac Intermediate vomiting Verified 09/18/24 09:27 Home Medications Medication Instructions Recorded Confirmed Type vits no.124-ferrous fum 1 tab PO DAILY 08/23/24 09/18/24 History 27 mg iron-folic acid 800 mcg tablet ( Vitamin) insulin glargine 100 unit/mL (3 10 unit subcut BID 09/18/24 09/18/24 History mL) subcutaneous pen (Lantus Solostar U-100 Insulin) Patient History Medical History with 41 completed weeks gestation PNA (pneumonia) Normal labor Urinary tract infection Surgical History [place] teeth removed Social History Smoking Status: Current some day smoker Tobacco Type: Cigarettes Cigarettes Per Day: 10; Second Hand Exposure: Yes; Do You Dip or Chew Tobacco: No; Tobacco Cessation Education Requested by Patient: No Hx Alcohol Use: No Hx Substance Use: No Preferred Language: Zimbabwean Communication Ability: Effective Supervisor Grower Required: No Beliefs That Will Affect Care: None marital status: Single Current Living Situation: Other Current Living Situation Comment: lives with daughter and a friend Other Information That Helps Us Care for You: No Feels Safe at Home: Yes Safety Concerns: Feels Safe At This Time Assistive Devices: None Physical Exam Genitourinary: no vaginal lesions, no adnexal mass OB Exam Abdomen: + fundal height and + vertex Manual OB Exam: + cervical dilation 1 cm, + cervical effacement 70% and + station -2 OB Exam Monitor Tracing: + external FHT monitor used, + external uterine monitor used, + category I and + normal FHT variability Results & Data Vital Signs (Past 12 Hours) Vital Signs Temp Pulse Resp BP 09/18/24 10:43 111 H 128/72 09/18/24 09:14 105 H 133/66 09/18/24 09:13 105 H 148/83 H 09/18/24 09:10 20 09/18/24 09:10 36.4 C L 20 Code Status & VTE Plan VTE Prophylaxis Plan VTE Prophylaxis will be ordered: No Monitoring External Monitor Cat 1
[2024-09-18 11:33] LABS: Amphetamines+Metham, Urine Pos (Neg); Barbiturates, Urine Neg (Neg); Benzodiazepine, Urine Neg (Neg); Cocaine, Urine Neg (Neg); Fentanyl, Urine Neg (Neg); MDMA (Ecstacy), Urine Pos (Neg); Marijuana, Urine Neg (Neg); Methadone, Urine Neg (Neg); Opiate, Urine Neg (Neg); Phencyclidine, Urine Neg (Neg)
[2024-09-18] MEDS: LACTATED RINGER'S 1,000 ML IV PRN (12:07)
[2024-09-18] MEDS: miSOPROStoL 50 MCG TAB PO SCH (14:53)
[2024-09-18] MEDS ORDERED: NALBUPHINE HCL INJ 10 MG/ML AMP IV PRN (16:42)
[2024-09-18] MEDS ORDERED: ePHEDrine sulfate 50 MG/ML AMP IV PRN (16:42)
[2024-09-18] MEDS ORDERED: NALOXONE HCL 1 MG in SODIUM CHLORIDE 0.9% 1,000 ML IV PRN (16:42)
[2024-09-18] MEDS ORDERED: LIDOCAINE 2% MPF LOCAL 5 ML VIAL EPI PRN (16:42)
[2024-09-18] MEDS ORDERED: diphenhydrAMINE 50 MG/ML VIAL IV PRN (16:42)
[2024-09-18] MEDS ORDERED: fentaNYL citrate PF 100 MCG/2 ML VIAL EPI PRN (16:42)
[2024-09-18] MEDS ORDERED: SODIUM CHLORIDE 0.9% PF INJ 10 ML VIAL EPI PRN (16:42)
[2024-09-18] MEDS ORDERED: ROPIVACAINE 0.5% PF 5 MG/ML 20 ML VIAL EPI PRN (16:42)
[2024-09-18] MEDS ORDERED: fentANYL 2 MCG/ML BUPIVacaine 0.125%-NSS 100ML BAG EPI PRN (16:42)
[2024-09-18] MEDS ORDERED: NALOXONE HCL 0.4 MG/1 ML VIAL/CARP IV PRN (16:42)
[2024-09-18] MEDS ORDERED: BUPIVACAINE 0.25% PF 30 ML VIAL EPI PRN (16:42)
--- NOTE | 2024-09-18 16:49 | Anesthesiology Consultation ---
Date of Service September 18, 2024 Assessment & Plan Chart Review Chart Review: Patient NOT seen in Pre Admission Testing and Acceptable Risk for Labor Epidural Consults Requested none ASA ASA3 Proposed Anesthesia Anesthesia Type: Labor Epidural Risk / Benefits Reviewed With: PT / POA / Parent / Guardian, Accepts Plan and Informed Consent Obtained History Height/Weight Height: 5 ft 4 in Weight: 94.801 kg Allergies Allergy/AdvReac Type Severity Reaction Status Date / Time amoxicillin [From Augmentin] AdvReac Intermediate hematuria Verified 09/18/24 09:27 clavulanic acid AdvReac Intermediate hematuria Verified 09/18/24 09:27 [From Augmentin] tramadol AdvReac Intermediate vomiting Verified 09/18/24 09:27 Medications Home Medications Medication Instructions Recorded Confirmed Last Taken vits no.124-ferrous fum 1 tab PO DAILY 08/23/24 09/18/24 09/18/24 08:00 27 mg iron-folic acid 800 mcg tablet ( Vitamin) insulin glargine 100 unit/mL (3 10 unit subcut BID 09/18/24 09/18/24 09/17/24 21:30 mL) subcutaneous pen (Lantus Solostar U-100 Insulin) Active Medications Generic Name Dose Route Start Last Admin Trade Name Freq PRN Reason Stop Dose Admin Lactated Ringer's 1,000 mls @ 125 mls/hr 09/18/24 10:18 09/18/24 16:20 Lr IV 09/20/24 10:17 999 mls/hr .Q8H PRN Infusion L&D Protocol Protocol Misoprostol 50 mcg 09/18/24 14:45 09/18/24 14:53 Misoprostol 50 Mcg Tab PO 10/18/24 14:44 50 mcg Q4H IAM Administration NPO Date Last Intake of Fluids: 09/18/24 Time Last Intake of Fluids: 16:00 Date Last Intake of Solids: 09/18/24 Time Last Intake of Solids: 11:00 Past Medical History Medical History with 41 completed weeks gestation PNA (pneumonia) Normal labor Urinary tract infection Exercise / Class Metabolic Activity 1 > 8 Run/Swim/Ski/Tennis Past Surgical History Surgical History [place] teeth removed Past Anesthesia History No Hx of Anesthesia Complications and No Family Hx of Anesthesia Complications History of PONV No Hx of Motion Sickness and History of PONV Social History Smoking Status: Current some day smoker tobacco type: smokeless tobacco Smoking cigarettes per day: 10 Do You Dip or Chew Tobacco: No Hx Alcohol Use: No Hx Substance Use: No substance use type: does not use Review of Systems ROS Unobtainable: All systems reviewed & are unremarkable except as noted in HPI & below Physical Exam Vital Signs Last Vital Signs Temp 37.0 C 09/18/24 14:51 Pulse 98 H 09/18/24 16:43 Resp 22 09/18/24 14:51 BP 131/64 09/18/24 16:33 Pulse Ox 98 09/18/24 16:43 ENMT Mouth: no TMJ abnormality Thyromental Distance: > or= 3.5 Finger Breadths Mallampati Class: II Neck normal visual inspection and trachea midline; neck extension not limited Respiratory normal respiratory effort Auscultation: lungs clear to auscultation bilaterally Cardiovascular Rate/Rhythm: regular rate and regular rhythm Heart Sounds: no murmur Musculoskeletal Spine: normal cervical ROM Extremities: full ROM of extremities Neurologic moves all extremities Psychiatric Orientation: alert and oriented x 3 Testing Laboratory Results 09/18/24 10:36 Blood Type O Positive 09/18/24 10:36 Antibody Screen NEGATIVE 09/18/24 10:36 09/18/24 09/18/24 09/18/24 15:37 13:31 11:31 POC Glucose 90 86 116 H 09/18/24 09:33 POC Glucose 109 H
[2024-09-18] MEDS: fentANYL 2 MCG/ML BUPIVacaine 0.125%-NSS 100ML BAG ONE (17:06)
[2024-09-18] MEDS: LIDOCAINE 2%/EPINEPHRINE 1:200,000 20 ML PF ONE (17:08)
[2024-09-18] MEDS: fentaNYL citrate PF 100 MCG/2 ML VIAL ONE (17:09)
[2024-09-18] MEDS: BUPIVACAINE 0.25% PF 30 ML VIAL ONE (17:09)
--- NOTE | 2024-09-18 18:25 | Labor Progress Brief Note ---
Date of Service September 18, 2024 Assessment & Plan Admission and Anticipated Discharge Date Admission Date: September 18, 2024 Physical Exam Genitourinary: Manual OB Exam: + cervical dilation 5 cm, + cervical effacement 90% and + station -1 OB Exam Monitor Tracing: + external FHT monitor used, + external uterine monitor used, + category I and + normal FHT variability Results & Data Vital Signs (Past 12 Hours) Vital Signs Temp Pulse Resp BP Pulse Ox 09/18/24 18:20 109 H 88 L 09/18/24 18:18 114 H 94 09/18/24 18:17 97 H 100/56 L 09/18/24 18:14 101 H 90 09/18/24 18:13 95 H 91 09/18/24 18:08 102 H 92 09/18/24 18:04 97 H 90 09/18/24 18:03 96 H 91 09/18/24 18:02 96 H 102/54 L 09/18/24 18:00 20 09/18/24 18:00 20 09/18/24 17:58 100 H 92 09/18/24 17:53 108 H 91 09/18/24 17:51 109 H 90 09/18/24 17:48 102 H 111/55 L 91 09/18/24 17:43 105 H 92 09/18/24 17:38 106 H 91 09/18/24 17:33 110 H 92 09/18/24 17:32 106 H 129/59 L 09/18/24 17:30 20 09/18/24 17:30 20 09/18/24 17:28 93 09/18/24 17:28 115 H 09/18/24 17:28 110 H 120/56 L 09/18/24 17:23 118 H 110/59 L 94 09/18/24 17:18 111 H 94 09/18/24 17:17 112 H 122/64 09/18/24 17:15 120 H 22 114/68 09/18/24 17:13 94 09/18/24 17:13 112 H 09/18/24 17:13 114 H 131/73 09/18/24 17:11 116 H 123/68 09/18/24 17:10 22 09/18/24 17:10 22 09/18/24 17:09 121 H 151/86 H 09/18/24 17:08 111 H 98 09/18/24 17:07 107 H 145/82 H 09/18/24 17:05 102 H 148/88 H 09/18/24 17:04 22 09/18/24 17:04 22 09/18/24 17:03 105 H 100 09/18/24 16:58 101 H 100 09/18/24 16:53 118 H 95 09/18/24 16:52 111 H 90 09/18/24 16:48 104 H 100 09/18/24 16:45 22 09/18/24 16:45 36.4 C L 22 09/18/24 16:43 98 H 98 09/18/24 16:38 99 H 99 09/18/24 16:33 97 H 131/64 98 09/18/24 16:28 99 H 99 09/18/24 16:23 92 H 98 09/18/24 15:39 122 H 96 09/18/24 15:34 96 H 95 09/18/24 15:29 96 H 96 09/18/24 15:24 105 H 95 09/18/24 15:19 97 H 95 09/18/24 15:14 99 H 94 09/18/24 15:09 97 H 95 09/18/24 15:04 95 H 95 09/18/24 14:59 93 H 96 09/18/24 14:54 112 H 96 09/18/24 14:51 37.0 C 115 H 22 141/82 H 09/18/24 14:49 98 H 95 09/18/24 14:47 97 H 94 09/18/24 14:44 97 H 95 09/18/24 14:39 93 H 95 09/18/24 14:38 93 H 94 09/18/24 14:34 94 H 95 09/18/24 14:29 95 H 96 09/18/24 14:24 108 H 98 09/18/24 14:23 95 H 94 09/18/24 14:19 86 96 09/18/24 14:18 97 H 94 09/18/24 14:14 102 H 96 09/18/24 14:12 92 H 94 09/18/24 14:09 90 95 09/18/24 14:07 90 93 09/18/24 14:04 97 H 97 09/18/24 13:59 88 97 09/18/24 13:54 92 H 96 09/18/24 13:49 103 H 97 09/18/24 13:44 106 H 97 09/18/24 13:39 99 H 97 09/18/24 13:34 90 97 09/18/24 13:29 101 H 98 09/18/24 13:19 106 H 97 09/18/24 13:14 108 H 98 09/18/24 13:09 102 H 97 09/18/24 13:04 107 H 97 09/18/24 12:59 116 H 98 09/18/24 12:54 100 H 97 09/18/24 12:49 121 H 97 09/18/24 12:44 96 H 97 09/18/24 12:39 93 H 97 09/18/24 12:34 95 H 97 09/18/24 12:29 99 H 97 09/18/24 12:24 109 H 98 09/18/24 12:19 109 H 97 09/18/24 12:14 105 H 98 09/18/24 12:09 115 H 96 09/18/24 11:53 37.0 C 106 H 20 140/78 09/18/24 10:43 111 H 128/72 09/18/24 09:14 105 H 133/66 09/18/24 09:13 105 H 148/83 H 09/18/24 09:10 20 09/18/24 09:10 36.4 C L 20
[2024-09-18] MEDS: ePHEDrine sulfate 50 MG/ML AMP ONE (18:39)
[2024-09-18] MEDS: fentaNYL citrate PF 100 MCG/2 ML VIAL EPI STA (19:43)
[2024-09-18] MEDS: SODIUM CHLORIDE 0.9% PF INJ 10 ML VIAL EPI STA (19:43)
[2024-09-18] MEDS: LIDOCAINE 2%/EPINEPHRINE 1:200,000 20 ML PF EPI STA (19:43)
[2024-09-18] MEDS: BUPIVACAINE 0.25% PF 30 ML VIAL EPI STA (19:43)
[2024-09-18] MEDS: SODIUM CHLORIDE 0.9% PF INJ 10 ML VIAL ONE (19:43)
[2024-09-18] MEDS: OXYTOCIN 30 UNITS/NSS 30 UNITS/500 ML BAG IV PRN (19:52)
[2024-09-18] MEDS ORDERED: HYDROCORTISONE ACETATE 25 MG SUPP PR PRN (23:29)
[2024-09-18] MEDS ORDERED: bisacodyL 10 MG SUPP PR PRN (23:29)
[2024-09-18] MEDS ORDERED: DIPHTHER/TETAN/PERTUS Vaccine (Tdap, Adol/Adult) 0.5mL IM ONE (23:29)
--- NOTE | 2024-09-18 23:37 | Delivery Summary ---
Vaginal Delivery Summary Date of Service September 18, 2024 Vaginal Delivery Summary live female JOLEEN over intact perineum with delayed cord clamping and Apgars 8/9 weight pending. Cord blood obtained followed by spontaneous delivery of intact placenta. No tears. QBL 201 ml. Final sponge and instrument counts are correct. Mom and baby stable.
[2024-09-18] MEDS ORDERED: GLUCOSE 10 TAB/TUBE PO PRN (23:45)
[2024-09-18] MEDS ORDERED: DEXTROSE 50% 50 ML SYRINGE IV PRN (23:45)
[2024-09-18] MEDS ORDERED: GLUCAGON FOR INJ 1 MG VIAL SQ PRN (23:45)
[2024-09-18] MEDS ORDERED: GLUCOSE 40% GEL 15 GM TUBE PO PRN (23:45)
[2024-09-18] MEDS ORDERED: CARBOHYDRATES FOR HYPOGLYCEMIA PO PRN (23:45)
[2024-09-19] MEDS: IBUPROFEN 600 MG TAB PO PRN (00:11)
[2024-09-19] MEDS: BENZOCAINE 20% SPRY 85 APPLN/85 GM CAN EXT PRN (00:11)
[2024-09-19] MEDS: PRENATAL VITAMIN 1 TAB PO SCH (07:30)
[2024-09-19] MEDS: FERROUS SULFATE 325 MG TAB PO SCH (07:30)
[2024-09-19] MEDS: DOCUSATE SODIUM 100 MG CAP PO SCH (07:30)
[2024-09-19 08:01] LABS: Hematocrit (blood only) 33.7 % (37.0-47.0); Hemoglobin 10.7 g/dl (12.0-16.0); Mean Corpuscular Hemoglobin 28.2 pg (25.0-34.0); Mean Corpuscular Hgb Conc 31.8 g/dL (32.0-36.0); Mean Corpuscular Volume 88.7 fL (80.0-100.0); Mean Platelet Volume 10.2 fL (9.4-12.4); Platelet Count 241 K/uL (130-400); RDW Coefficient of Variation 13.6 % (11.5-14.5); RDW Standard Deviation 43.5 fL (36.4-46.3); White Blood Count 19.55 K/ul (4.8-10.8)
[2024-09-19] MEDS ORDERED: LANTUS PER UNIT CHARGE SQ SCH (09:00)
[2024-09-19] MEDS ORDERED: PRENATAL VITAMIN 1 TAB PO SCH (09:00)
--- NOTE | 2024-09-19 09:19 | Labor Progress Brief Note ---
Date of Service September 19, 2024 Subjective Reason For Note: Routine Evaluation Assessment & Plan Admission and Anticipated Discharge Date Admission Date: September 18, 2024 Physical Exam Constitutional: WD/WN, vitals as above Gastrointestinal (Abdomen): Inspection/Auscultation: abdomen normal to inspection abdomen soft and non-tender. fundus firm below U. Musculoskeletal: Extremities: extremities normal to inspection Skin: no rashes, warm and dry Neurologic: patellar DTR's 2+ bilat, sensation intact Psychiatric: A+Ox3, euthymic affect Results & Data Vital Signs (Past 12 Hours) Vital Signs Temp Pulse Pulse Resp BP BP Pulse Ox 09/19/24 07:30 36.9 C 91 H 18 135/82 99 09/19/24 03:00 36.5 C 86 14 144/76 H 97 09/19/24 01:30 103 H 131/61 09/19/24 01:15 116 H 146/75 H 09/19/24 01:01 110 H 147/62 H 09/19/24 00:30 111 H 140/68 09/19/24 00:15 104 H 134/70 09/19/24 00:00 104 H 133/71 09/18/24 23:45 103 H 133/61 09/18/24 23:30 106 H 131/67 09/18/24 23:15 115 H 126/92 09/18/24 23:12 102 H 149/71 H 09/18/24 23:08 98 H 97 09/18/24 23:03 120 H 97 09/18/24 22:58 106 H 97 09/18/24 22:53 128 H 98 09/18/24 22:48 104 H 98 09/18/24 22:43 115 H 96 09/18/24 22:38 114 H 96 09/18/24 22:33 105 H 96 09/18/24 22:31 117 H 118/84 09/18/24 22:28 116 H 94 09/18/24 22:23 96 H 96 09/18/24 22:18 102 H 94 09/18/24 22:15 111 H 129/71 09/18/24 22:13 101 H 94 09/18/24 22:08 109 H 96 09/18/24 22:03 111 H 96 09/18/24 22:01 92 H 128/69 09/18/24 21:58 108 H 96 05/01/25 21:53 93 H 94 09/18/24 21:48 114 H 95 09/18/24 21:45 107 H 123/65 09/18/24 21:43 90 95 09/18/24 21:38 102 H 95 09/18/24 21:37 18 09/18/24 21:37 36.6 C 18 09/18/24 21:33 105 H 94 09/18/24 21:31 99 H 121/62 09/18/24 21:28 110 H 95 09/18/24 21:23 88 94 09/18/24 21:18 96 H 95 O2 Del Method 09/19/24 07:30 Room Air 09/19/24 03:00 Room Air 09/19/24 01:30 09/19/24 01:15 09/19/24 01:01 09/19/24 00:30 09/19/24 00:15 09/19/24 00:00 09/18/24 23:45 09/18/24 23:30 09/18/24 23:15 09/18/24 23:12 09/18/24 23:08 09/18/24 23:03 09/18/24 22:58 09/18/24 22:53 09/18/24 22:48 09/18/24 22:43 09/18/24 22:38 09/18/24 22:33 09/18/24 22:31 09/18/24 22:28 09/18/24 22:23 09/18/24 22:18 09/18/24 22:15 09/18/24 22:13 09/18/24 22:08 09/18/24 22:03 09/18/24 22:01 09/18/24 21:58 09/18/24 21:53 09/18/24 21:48 09/18/24 21:45 09/18/24 21:43 09/18/24 21:38 09/18/24 21:37 09/18/24 21:37 09/18/24 21:33 09/18/24 21:31 09/18/24 21:28 09/18/24 21:23 09/18/24 21:18 Laboratory Results Laboratory Results - last 72 hr 09/18/24 09/18/24 09/18/24 09:10 09:33 10:36 WBC 12.08 H RBC 4.15 L Hgb 11.6 L Hct 36.6 L MCV 88.2 MCH 28.0 MCHC 31.7 L RDW Std Deviation 43.1 RDW Coeff of Katalina 13.6 Plt Count 270 MPV 10.3 POC Glucose 109 H Urine Opiates Screen Neg Ur Methadone, Qual Neg Urine Fentanyl Screen Neg Urine Barbiturates Neg Ur Phencyclidine (PCP) Neg U Amphetamin/Meth Scrn Pos H MDMA (Ecstasy) Screen Pos H U Benzodiazepines Scrn Neg Ur Cocaine Metabolite Neg U Marijuana (THC) Screen Neg Treponema pallidum Ab Negative Blood Type O Positive Antibody Screen NEGATIVE 09/18/24 09/18/24 09/18/24 11:31 13:31 15:37 WBC RBC Hgb Hct MCV MCH MCHC RDW Std Deviation RDW Coeff of Katalina Plt Count MPV POC Glucose 116 H 86 90 Urine Opiates Screen Ur Methadone, Qual Urine Fentanyl Screen Urine Barbiturates Ur Phencyclidine (PCP) U Amphetamin/Meth Scrn MDMA (Ecstasy) Screen U Benzodiazepines Scrn Ur Cocaine Metabolite U Marijuana (THC) Screen Treponema pallidum Ab Blood Type Antibody Screen 09/18/24 09/18/24 09/18/24 17:33 19:30 21:38 WBC RBC Hgb Hct MCV MCH MCHC RDW Std Deviation RDW Coeff of Katalina Plt Count MPV POC Glucose 87 78 68 L* Urine Opiates Screen Ur Methadone, Qual Urine Fentanyl Screen Urine Barbiturates Ur Phencyclidine (PCP) U Amphetamin/Meth Scrn MDMA (Ecstasy) Screen U Benzodiazepines Scrn Ur Cocaine Metabolite U Marijuana (THC) Screen Treponema pallidum Ab Blood Type Antibody Screen 09/19/24 07:44 WBC 19.55 H RBC 3.80 L Hgb 10.7 L Hct 33.7 L MCV 88.7 MCH 28.2 MCHC 31.8 L RDW Std Deviation 43.5 RDW Coeff of Katalina 13.6 Plt Count 241 MPV 10.2 POC Glucose Urine Opiates Screen Ur Methadone, Qual Urine Fentanyl Screen Urine Barbiturates Ur Phencyclidine (PCP) U Amphetamin/Meth Scrn MDMA (Ecstasy) Screen U Benzodiazepines Scrn Ur Cocaine Metabolite U Marijuana (THC) Screen Treponema pallidum Ab Blood Type Antibody Screen
--- NOTE | 2024-09-19 10:42 | Anesthesia Procedure Note ---
Date of Service September 19, 2024 Anesthesia Post Epidural Note Vital Signs Vital Signs: Temp Pulse Resp BP Pulse Ox O2 Del Method 36.9 C 91 H 18 135/82 99 Room Air 09/19/24 07:30 09/19/24 07:30 09/19/24 07:30 09/19/24 07:30 09/19/24 07:30 09/19/24 07:30 Pain Intensity Abdomen: Pain Intensity: 0 Notes Mental Status: alert / awake / arousable Nausea / Vomiting: adequately controlled Pain: adequately controlled Airway Patency, RR, SpO2: stable & adequate BP & HR: stable & adequate Hydration State: stable & adequate Neuraxial Anesthesia: was administered and sensory block is resolving Anesthetic Complications: no major complications apparent and Pt Satisfied with anesthetic care Epidural: Removed without complications and With tip intact
[2024-09-19] MEDS: ACETAMINOPHEN 325 MG TAB PO PRN (11:37)
[2024-09-19] MEDS ORDERED: bisacodyL 5 MG TABEC PO SCH (20:00)
[2024-09-19] MEDS: CALCIUM CARBONATE 500 MG CHEWABLE TAB PO PRN (23:51)
[2024-09-20 03:35] VITALS: O2SAT 99
[2024-09-20 06:42] LABS: Basophils # (auto) 0.04 K/uL (0.00-0.20); Basophils % (auto) 0.3 %; Eosinophils # (auto) 0.27 K/uL (0.00-0.50); Eosinophils % (auto) 1.7 %; Hematocrit (blood only) 31.6 % (37.0-47.0); Hemoglobin 10.1 g/dl (12.0-16.0); Immature Granulocytes # (auto) 0.19 K/uL (0.01-0.20); Immature Granulocytes % (auto) 1.2 %; Lymphocytes # (auto) 2.39 K/uL (1.20-3.40); Lymphocytes % (auto) 15.2 %; Mean Corpuscular Hemoglobin 28.1 pg (25.0-34.0); Mean Platelet Volume 10.2 fL (9.4-12.4); Monocytes # (auto) 1.27 K/uL (0.11-0.59); Monocytes % (auto) 8.1 %; Neutrophils # (auto) 11.56 K/uL (1.40-6.50); Neutrophils % (auto) 73.5 %; Platelet Count 245 K/uL (130-400); RDW Coefficient of Variation 13.8 % (11.5-14.5); Red Blood Count 3.59 M/uL (4.20-5.40); White Blood Count 15.72 K/ul (4.8-10.8)
[2024-09-20 08:20] VITALS: PULSE 102; RESP 18; TEMP 98.1
--- NOTE | 2024-09-20 10:17 | Obstetrical Progress Note ---
Date of Service September 20, 2024 Assessment & Plan Admission and Anticipated Discharge Date Admission Date: September 18, 2024 Subjective Patient is seen and examined. She feels well, no complaints. Ambulating without dizziness Voiding without difficulty Tolerating regular diet with out N&V Bleeding is minimal No fever/ chills/ CP/ SOB/ N&V/ Leg pain Bottle feeding without problems Lab Results 09/18/24 09/18/24 09/18/24 Range/Units 09:10 09:33 10:36 WBC 12.08 H (4.8-10.8) K/ul RBC 4.15 L (4.20-5.40) M/uL Hgb 11.6 L (12.0-16.0) g/dl Hct 36.6 L (37.0-47.0) % MCV 88.2 (80.0-100.0) fL MCH 28.0 (25.0-34.0) pg MCHC 31.7 L (32.0-36.0) g/dL RDW Std Deviation 43.1 (36.4-46.3) fL RDW Coeff of Katalina 13.6 (11.5-14.5) % Plt Count 270 (130-400) K/uL MPV 10.3 (9.4-12.4) fL Immature Gran % (Auto) % Neut % (Auto) % Lymph % (Auto) % [place] % (Auto) % Eos % (Auto) % Baso % (Auto) % Neut # (Auto) (1.40-6.50) K/uL Lymph # (Auto) (1.20-3.40) K/uL [place] # (Auto) (0.11-0.59) K/uL Eos # (Auto) (0.00-0.50) K/uL Baso # (Auto) (0.00-0.20) K/uL Immature Gran # (Auto) (0.01-0.20) K/uL POC Glucose 109 H (70-99) mg/dl Urine Opiates Screen Neg (Neg) Ur Methadone, Qual Neg (Neg) Urine Fentanyl Screen Neg (Neg) Urine Barbiturates Neg (Neg) Ur Phencyclidine (PCP) Neg (Neg) U Amphetamin/Meth Scrn Pos H (Neg) MDMA (Ecstasy) Screen Pos H (Neg) U Benzodiazepines Scrn Neg (Neg) Ur Cocaine Metabolite Neg (Neg) U Marijuana (THC) Screen Neg (Neg) Treponema pallidum Ab Negative (Negative) Blood Type O Positive Antibody Screen NEGATIVE 09/18/24 09/18/24 09/18/24 Range/Units 11:31 13:31 15:37 WBC (4.8-10.8) K/ul RBC (4.20-5.40) M/uL Hgb (12.0-16.0) g/dl Hct (37.0-47.0) % MCV (80.0-100.0) fL MCH (25.0-34.0) pg MCHC (32.0-36.0) g/dL RDW Std Deviation (36.4-46.3) fL RDW Coeff of Katalina (11.5-14.5) % Plt Count (130-400) K/uL MPV (9.4-12.4) fL Immature Gran % (Auto) % Neut % (Auto) % Lymph % (Auto) % [place] % (Auto) % Eos % (Auto) % Baso % (Auto) % Neut # (Auto) (1.40-6.50) K/uL Lymph # (Auto) (1.20-3.40) K/uL [place] # (Auto) (0.11-0.59) K/uL Eos # (Auto) (0.00-0.50) K/uL Baso # (Auto) (0.00-0.20) K/uL Immature Gran # (Auto) (0.01-0.20) K/uL POC Glucose 116 H 86 90 (70-99) mg/dl Urine Opiates Screen (Neg) Ur Methadone, Qual (Neg) Urine Fentanyl Screen (Neg) Urine Barbiturates (Neg) Ur Phencyclidine (PCP) (Neg) U Amphetamin/Meth Scrn (Neg) MDMA (Ecstasy) Screen (Neg) U Benzodiazepines Scrn (Neg) Ur Cocaine Metabolite (Neg) U Marijuana (THC) Screen (Neg) Treponema pallidum Ab (Negative) Blood Type Antibody Screen 09/18/24 09/18/24 09/18/24 Range/Units 17:33 19:30 21:38 WBC (4.8-10.8) K/ul RBC (4.20-5.40) M/uL Hgb (12.0-16.0) g/dl Hct (37.0-47.0) % MCV (80.0-100.0) fL MCH (25.0-34.0) pg MCHC (32.0-36.0) g/dL RDW Std Deviation (36.4-46.3) fL RDW Coeff of Katalina (11.5-14.5) % Plt Count (130-400) K/uL MPV (9.4-12.4) fL Immature Gran % (Auto) % Neut % (Auto) % Lymph % (Auto) % [place] % (Auto) % Eos % (Auto) % Baso % (Auto) % Neut # (Auto) (1.40-6.50) K/uL Lymph # (Auto) (1.20-3.40) K/uL [place] # (Auto) (0.11-0.59) K/uL Eos # (Auto) (0.00-0.50) K/uL Baso # (Auto) (0.00-0.20) K/uL Immature Gran # (Auto) (0.01-0.20) K/uL POC Glucose 87 78 68 L* (70-99) mg/dl Urine Opiates Screen (Neg) Ur Methadone, Qual (Neg) Urine Fentanyl Screen (Neg) Urine Barbiturates (Neg) Ur Phencyclidine (PCP) (Neg) U Amphetamin/Meth Scrn (Neg) MDMA (Ecstasy) Screen (Neg) U Benzodiazepines Scrn (Neg) Ur Cocaine Metabolite (Neg) U Marijuana (THC) Screen (Neg) Treponema pallidum Ab (Negative) Blood Type Antibody Screen 09/19/24 09/20/24 Range/Units 07:44 06:23 WBC 19.55 H 15.72 H (4.8-10.8) K/ul RBC 3.80 L 3.59 L (4.20-5.40) M/uL Hgb 10.7 L 10.1 L (12.0-16.0) g/dl Hct 33.7 L 31.6 L (37.0-47.0) % MCV 88.7 88.0 (80.0-100.0) fL MCH 28.2 28.1 (25.0-34.0) pg MCHC 31.8 L 32.0 (32.0-36.0) g/dL RDW Std Deviation 43.5 43.0 (36.4-46.3) fL RDW Coeff of Katalina 13.6 13.8 (11.5-14.5) % Plt Count 241 245 (130-400) K/uL MPV 10.2 10.2 (9.4-12.4) fL Immature Gran % (Auto) 1.2 % Neut % (Auto) 73.5 % Lymph % (Auto) 15.2 % [place] % (Auto) 8.1 % Eos % (Auto) 1.7 % Baso % (Auto) 0.3 % Neut # (Auto) 11.56 H (1.40-6.50) K/uL Lymph # (Auto) 2.39 (1.20-3.40) K/uL [place] # (Auto) 1.27 H (0.11-0.59) K/uL Eos # (Auto) 0.27 (0.00-0.50) K/uL Baso # (Auto) 0.04 (0.00-0.20) K/uL Immature Gran # (Auto) 0.19 (0.01-0.20) K/uL POC Glucose (70-99) mg/dl Urine Opiates Screen (Neg) Ur Methadone, Qual (Neg) Urine Fentanyl Screen (Neg) Urine Barbiturates (Neg) Ur Phencyclidine (PCP) (Neg) U Amphetamin/Meth Scrn (Neg) MDMA (Ecstasy) Screen (Neg) U Benzodiazepines Scrn (Neg) Ur Cocaine Metabolite (Neg) U Marijuana (THC) Screen (Neg) Treponema pallidum Ab (Negative) Blood Type Antibody Screen Vital Signs Temp Pulse Resp BP BP Pulse Ox O2 Del Method 09/20/24 07:22 36.7 C 102 H 18 139/84 99 Room Air 09/20/24 03:33 36.6 C 96 H 20 135/85 99 Room Air 09/19/24 22:48 36.6 C 99 H 22 135/77 96 Room Air PE: General: Alert, orientedx3, NAD Abd: soft, NT, fundus firm, below Umbilicus Perineum intact, Lochia rubra minimal Ext; NT, 1+ edema BL, homans sign neg AP: 34 yo s/p , ppd# 2 VSS Afebrile doing well Continue routine care All questions were answered D/C home , f/u in office Results & Data Vital Signs (Past 12 Hours) Vital Signs Temp Pulse Resp BP BP Pulse Ox O2 Del Method 09/20/24 07:22 36.7 C 102 H 18 139/84 99 Room Air 09/20/24 03:33 36.6 C 96 H 20 135/85 99 Room Air 09/19/24 22:48 36.6 C 99 H 22 135/77 96 Room Air
[2024-09-20 10:48] VITALS: BP 135/77
[2024-09-21 12:37] LABS: Amphetamine Urine, Confirm 3490 ng/mL (<250); MDA negative; MDEA negative; MDMA (Ecstasy) Urine, Confirm negative; Methamphetamine, Ur Confirm >15000 ng/mL (<250)
== END 2024-09-20 12:00 | disposition home health service (06) | DRG 807 ==
LOC: 4S1 08:55 → 4E2 09-19 01:45